=== PATIENT | female | born 1980 | race Caucasian/White ===

== ENCOUNTER 2020-02-11 13:08 | Emergency (ER) | payer OTHER, SELFPAY ==
[2020-02-11 13:17] VITALS: BP 99/68; PULSE 87; RESP 12; TEMP 36.8; O2SAT 100
--- NOTE | 2020-02-11 13:35 | ED.GENADULT ---
HPI - General Adult General Chief complaint: Nausea/Vomiting/Diarrhea Stated complaint: vomiting/weakness/nausea Time Seen by Provider: 02/11/20 13:35 Source: patient and RN notes reviewed Mode of arrival: ambulatory Limitations: no limitations History of Present Illness HPI narrative: 39-year-old female presents with complaints of diarrhea, chills, and weakness for the past 21 days. Diarrhea has been present for the past 3 weeks. Symptoms increased over the past 24 hours with nausea and vomiting without blood. Nausea, vomiting, and diarrhea without abdominal pain. No treatment. No abdominal pain or cramping. Exacerbating factors consist of eating and drinking. LBM this afternoon brown thick stool without blood. Talya says she has had 2 stools today, 02/10/20 3 stools, 02/09/20 3 brown watery stools all without blood. Intermittent chills without unknown fever. Denies headache, dizziness, back pain, dysuria, and blood in stool. Tolerating po intake well, says she has been drinking 2 large water containers. Remains active. The patient reports she have not been diagnosed with COVID-19. The patient reports she is not waiting for the results of a COVID-19 lab test. The patient reports she do not have known fever, fatigue. The patient reports she do not have a new or worsening cough or shortness of breath. Denies chest pain. The patient reports she do not have any rhinorrhea, congestion, sore throat, loss of taste, or abdominal pain. Denies recent traveling. Denies concerns for COVID-19 or exposures been home with limited outdoor exposure except for essential household needs, work, and return home. At this time, patient is not suspected of having COVID-19. Some parts of this dictation were generated by voice recognition software and may contain typographical and/or grammatical inaccuracies. Related Data Allergies Allergy/AdvReac Type Severity Reaction Status Date / Time acetaminophen Allergy Unknown HIVES Verified 01/24/19 09:29 hydrocodone Allergy Unknown HIVES Verified 01/24/19 09:29 amoxicillin AdvReac Intermediate hives Verified 01/24/19 10:00 clavulanic acid AdvReac Intermediate hives Verified 01/24/19 10:00 Review of Systems Review of Systems: Narrative: CONSTITUTIONAL: Denies fever, sweats. Complains of chills. EYES: Denies visual changes, redness, discharge. ENT: Denies rhinorrhea, congestion, sore throat, otalgia. CARDIOVASCULAR: Denies chest pain, palpitations, edema. RESPIRATORY: Denies dyspnea, wheezing, cough. GASTROINTESTINAL: Denies abdominal pain. Complains of diarrhea, nausea, and vomiting. GENITOURINARY: Denies dysuria, hematuria, abnormal discharge. SKIN: Denies rash or itching. MUSCULOSKELETAL: Denies acute back pain, joint pain, or myalgia. NEUROLOGIC: Denies numbness or focal weakness. Complains of generalized weakness. PSYCHIATRIC: Denies anxiety or depression. All systems reviewed & are unremarkable except as noted in HPI and below. [facility] Past Medical History Medical History (Updated 02/11/20 @ 13:48 by BHASKAR Mar) Anxiety Cervical cancer Remission Depression Surgical History Surgical History (Updated 02/11/20 @ 13:45 by BHASKAR Mar) History of dental surgery History of tubal ligation Family History Family History (Updated 02/11/20 @ 13:46 by BHASKAR Mar) Father Diabetes mellitus Heart disease Family history of cancer Mother Family history of cancer Social History Social History (Updated 02/11/20 @ 13:56 by BHASKAR Mar) Smoking packs per day: 0.25 Smoking cigarettes per day: 5.0 Years smoked: 24 Smoking pack-years: 6.00 Smoking status: Current every day smoker Tobacco type: cigarettes Alcohol intake: former Substance use: former Gender identity (if verbalized by the patient): Female Comments At time of signature, I have reviewed and agree with nursing past medical, surgical, social, and family history.
== END 2020-02-11 14:14 | disposition home or self-care (01) ==
PROVIDERS: Emergency Provider Nurse Practitioner Family
DX: K52.9 Noninfective gastroenteritis and colitis, unspecified (principal); Z20.828 Contact with and (suspected) exposure to other viral communicable diseases; F17.210 Nicotine dependence, cigarettes, uncomplicated; Z85.41 Personal history of malignant neoplasm of cervix uteri
CPT/HCPCS: 81003; 87077; 87086; 87088; 87186; 99213; G0463

== ENCOUNTER 2020-02-27 16:58 | Emergency (ER) | payer OTHER, SELFPAY ==
--- NOTE | ~2020-02-27 | XR_ITS ---
EXAMINATION: XR chest 1V portable DATE: 02/27/2020 22:40 INDICATION: Weakness. Nausea and vomiting. Diarrhea. TECHNIQUE: A single frontal view of the chest was obtained. COMPARISON: CT abdomen and pelvis 02/27/2020 FINDINGS: There is no pneumonia, pleural effusion, or pneumothorax. The heart size is normal. IMPRESSION: 1. No acute cardiopulmonary disease. Reviewed, dictated and finalized at location A.
--- NOTE | ~2020-02-27 | CT_ITS ---
EXAMINATION: CT abdomen pelvis w con DATE: 02/27/2020 22:37 INDICATION: Nausea and vomiting. Diarrhea. TECHNIQUE: Computed tomography (CT) of the abdomen and pelvis was performed with 100 mL Omnipaque 350 intravenous contrast. Automated exposure control and iterative reconstruction technique were employe d. The dose-length product was 186.10 mGy-cm. COMPARISON: None. FINDINGS: The visualized portions of the lung bases are clear without pneumonia or pleural effusion. The heart size is normal. No pericardial effusion. The liver, gallbladder, spleen, pancreas, adrenal glands, and kidneys are normal. There are no dilated loops of bowel. The appendix is normal. The left periuterine and ovarian veins are enlarged, consistent with pelvic venous insufficiency. There is tr manuelito pelvic ascites. There are no pathologically enlarged lymph nodes. IMPRESSION: 1. Pelvic venous insufficiency. Reviewed, dictated and finalized at location A.
[2020-02-27 17:57] VITALS: BP 115/75; PULSE 80; RESP 18; TEMP 37.3; O2SAT 94
[2020-02-27 18:19] LABS: Basophils Absolute Auto 0.1 K/mm3 (0.0-0.1); Basophils Percent Auto 0.7 % (0.2-1.2); Eosinophils Absolute Auto 0.1 K/mm3 (0-0.3); Eosinophils Percent Auto 1.5 % (0-4.4); Hematocrit 44.5 % (37.0-47.0); Immature Granulocyte Absolute 0.02 K/mm3 (0.00-0.031); Immature Granulocyte Percent A 0.2 % (0-0.5); Lymphocytes Absolute Auto 2.87 K/mm3 (0.9-3.2); Lymphocytes Percent Auto 34.9 % (18.3-44.2); Mean Corpuscular HGB Conc 33.7 g/dl (32-36); Mean Corpuscular Hemoglobin 29.9 pg (26-34); Mean Corpuscular Volume 88.8 fl (80-100); Mean Platelet Volume 12.1 fl (7.4-10.4); Monocytes Absolute Auto 0.6 K/mm3 (0.1-0.6); Monocytes Percent Auto 6.7 % (2.6-8.5); Neutrophils Absolute Auto 4.6 K/mm3 (1.3-6.7); Platelet Count Result 198 k/mm3 (150-375); Red Blood Count 5.01 M/mm3 (4.2-5.4); Red Cell Distribution Width 12.4 % (11.5-14.5); White Blood Count 8.2 K/mm3 (4.5-10.0)
[2020-02-27 18:32] LABS: Alanine Aminotransferase 14 U/L (4-35); Albumin Level 4.6 g/dL (3.5-5.1); Alkaline Phosphatase 73 U/L (38-126); Anion Gap 6 mmol/L (8-16); Aspartate Amino Transferase 21 U/L (14-36); Bilirubin,Total 0.5 mg/dL (0.2-1.3); Blood Urea Nitrogen 9 mg/dL (7-17); Calcium 9.1 mg/dL (8.4-10.2); Carbon Dioxide 24 mmol/L (22-30); Chloride 109 mmol/L (98-107); Estimated CRCL calculation 61 ml/min; Estimated Glomerular Filt Rate > 60; Glucose 95 mg/dL (65-105); Lipase 141 U/L (23-300); Potassium 3.7 mmol/L (3.4-5.0); Sodium 139 mmol/L (137-145)
[2020-02-27 21:46] LABS: Add Urine Microscopic? NO; Appearance Urine Clear (Clear); Bilirubin Urine Negative (Negative); Blood Urine Negative (Negative); Color Urine Yellow (Yellow); Glucose Urine UA Negative (Negative); Ketones Urine Negative (Negative); Leukocyte Esterase Ur Negative LEU/UL (Negative); Nitrate Urine Negative (Negative); Protein Urine Negative (Negative); Specific Grav Ur 1.019 (1.001-1.035); Urobilinogen Urine Negative mg/dL (<2.0)
[2020-02-27 22:10] VITALS: BP 105/71; BP 105/76; PULSE 54; PULSE 62
[2020-02-27 22:11] VITALS: BP 102/80; PULSE 71
[2020-02-27] MEDS: LACTATED RINGERS 1,000 ML 999 ML IV CONT (22:13)
--- NOTE | 2020-02-27 22:16 | ED.NAVMDI ---
HPI - Nausea/Vomiting/Diarrhea General Chief complaint: Nausea/Vomiting/Diarrhea Stated complaint: n/v/d, recently had gastroenteritis Time Seen by Provider: 02/27/20 21:50 Source: patient Mode of arrival: ambulatory Limitations: no limitations History of Present Illness HPI Narrative: This patient is a 39 year old female who presents for evaluation of nausea, vomiting and diarrhea. She states she has diarrhea daily for 5 weeks. She states she has 3- 4 episodes of watery, nonbloody diarrhea in the morning. She also states she has vomiting in the morning as well. She states she normally does not eat very much in general. She is able to eat during the day with out nausea or vomiting. She denies abdominal pain, cough, fever, headache or dizziness. She was evaluated at an Urgent Care 2 weeks ago. She was diagnosed with gastroenteritis and she was prescribed macrobid. MD elicited complaint: nausea, vomiting and diarrhea Related Data Home Medications Medication Instructions Recorded Confirmed No Home Medications 02/27/20 Allergies Allergy/AdvReac Type Severity Reaction Status Date / Time acetaminophen [From Vicodin] Allergy Hives Verified 02/27/20 18:01 hydrocodone [From Vicodin] Allergy Hives Verified 02/27/20 18:01 Review of Systems Review of Systems: All systems reviewed & are unremarkable except as noted in HPI and below Constitutional: Constitutional: Denies chills and Denies fever(s) Cardiovascular: Cardiovascular: Denies chest pain Respiratory: Respiratory: Denies cough and Denies dyspnea Gastrointestinal: Gastrointestinal: Denies abdominal pain, Reports diarrhea, Reports nausea and Reports vomiting Neurologic: Denies dizziness and Denies numbness Comments: no headache PMFSH Past Medical History Medical History (Updated 02/28/20 @ 00:00 by Miracle Fish) Patient denies medical problems Surgical History Surgical History (Updated 02/27/20 @ 22:24 by Yolanda Villalba MD) No pertinent past surgical history Social History Social History (Updated 02/27/20 @ 22:25 by Yolanda Villalba MD) Substance use type: former substance user Last use: 15 years ago Gender identity (if verbalized by the patient): Female Sexual Orientation (if Verbalized by the Patient): Straight or Heterosexual Exam Const: General: alert Nutritional Appearance: thin Orientation/consciousness: patient oriented x3 HENMT: Head: normocephalic and atraumatic Face and sinus: face symmetric Teeth and gingiva: poor dentition Eyes: EOM: EOMs intact bilaterally Chest: Chest palpation & inspection: normal inspection of the chest Resp: Effort & Inspection: normal respiratory effort and no retractions Auscultation: clear to auscultation bilaterally Cardio: Rate: regular rate Rhythm: regular rhythm Heart sounds: no murmurs GI: GI Palp: Yes Soft to palpation, No Tenderness to palpation present (GI), No Guarding due to palpation present (GI) and No Rigid due to palpation Skin: General skin exam: normal color Rashes: no rashes Neuro: General: patient oriented x3, moves all extremities and CN's II-XI intact bilaterally Psych: Mental Status: mental status grossly normal Affect: normal affect Course Reevaluation(s) Reevaluation #1: I Discussed with patient evaluation has been un remarkable. I Discussed she will need to follow up with collating machine operator. You may have reflux causing nausea and vomiting in morning. Date: 02/27/20 Time: 22:48 Vital Signs Vital signs: Vital Signs Temperature 99.1 F 02/27/20 17:57 Pulse Rate 80 02/27/20 17:57 Respiratory Rate 18 02/27/20 17:57 Blood Pressure 115/75 02/27/20 17:57 Pulse Oximetry 94 02/27/20 17:57 Temperature 97.6 F 02/27/20 23:42 Pulse Rate 58 L 02/27/20 23:42 Respiratory Rate 16 02/27/20 23:42 Blood Pressure 125/78 02/27/20 23:42 Pulse Oximetry 99 02/27/20 23:42 MDM - Nausea/Vomiting/Diarrhea Lab
[2020-02-27 23:42] VITALS: BP 125/78; PULSE 58; RESP 16; TEMP 36.4; O2SAT 99
== END 2020-02-27 23:43 | disposition home or self-care (01) ==
PROVIDERS: Emergency Medicine; Emergency Provider General Practice
DX: R19.7 Diarrhea, unspecified (principal)
CPT/HCPCS: 36415; 71045; 74177; 80053; 81003; 81025; 83690; 85025; 96360; 99284; J7120; Q9967

== ENCOUNTER 2020-04-07 14:47 | Outpatient (CLI) | payer OTHER, SELFPAY ==
--- NOTE | ~2020-04-07 | MM_ITS ---
EXAMINATION: MM screening lokesh BI w daniel HISTORY: Screening mammogram TECHNIQUE: Craniocaudal and mediolateral oblique 3-D tomosynthesis images were obtained and synthetic 2-D images were generated. CAD analysis was submitted and interpreted. COMPARISON: None, baseline BREAST PARENCHYMAL COMPOSITION: The breasts are heterogeneously dense, which may obscure small masses . FINDINGS: There is no evidence of suspicious mass, calcification, or architectural distortion to sugg est malignancy in either breast. IMPRESSION: 1. No mammographic evidence of malignancy. 2. Recommend routine screening mammography in one year. BI-RADS Category 1: Negative Reviewed, dictated and finalized at location A.
--- NOTE | ~2020-04-07 | XR_ITS ---
EXAMINATION: XR knee RT min 4V DATE: 04/07/2020 16:00 INDICATION: Right knee pain. TECHNIQUE: 4 views of right knee were obtained. COMPARISON: None. FINDINGS: Bone alignment is normal. No fracture. Joint spaces are well maintained. There is no knee j oint effusion. IMPRESSION: 1. Normal right knee. Reviewed, dictated and finalized at location A. IMPRESSION: 1. Normal right knee.
== END 2020-04-07 14:48 | disposition home or self-care (01) ==
PROVIDERS: PCP Emergency Medicine; Referring Provider Emergency Medicine; Visit Provider Nurse Practitioner Obstetrics & Gynecology
DX: Z12.31 Encounter for screening mammogram for malignant neoplasm of breast (principal); M25.561 Pain in right knee
CPT/HCPCS: 73564; 77063; 77067

== ENCOUNTER 2020-04-12 01:08 | Outpatient (CLI) | payer OTHER, SELFPAY ==
[2020-04-12 19:58] LABS: SARS-CoV-2 RNA PCR Negative
== END 2020-04-12 01:09 | disposition home or self-care (01) ==
LOC: ANHCOVIDDT 01:08
PROVIDERS: PCP Emergency Medicine; Visit Provider Internal Medicine Gastroenterology
DX: Z01.812 Encounter for preprocedural laboratory examination (principal); Z20.828 Contact with and (suspected) exposure to other viral communicable diseases
CPT/HCPCS: 87635; C9803; U0003

== ENCOUNTER 2020-04-14 03:12 | Day surgery (SDC) | payer OTHER, SELFPAY ==
[2020-04-08 12:32] VITALS: BMI 18.2
[2020-04-14 09:42] VITALS: BP 114/80; PULSE 85; RESP 16; TEMP 37.4; O2SAT 95; BMI 17.3
[2020-04-14] MEDS: LACTATED RINGERS 1,000 ML 150 ML IV CONT (09:53)
--- NOTE | 2020-04-14 10:21 | WPDANESEPPF ---
Anes - Initial Pre Proc Eval Procedure: Operation Date: 04/14/20 11:00 Proposed Procedures p Esophagogastroduodenoscopy & Colonoscopy - Philip Plaza MD Date/Time: 04/14/20 10:21 Surgeon: Philip Plaza MD Pre Op Diagnosis: Nausea, Diarrhea Patient Data Age: 40 Gender: F Height: 5 ft 6 in Weight: 48.7 kg Last Vital Signs Temp 37.4 C 04/14/20 09:42 Pulse 85 04/14/20 09:42 Resp 16 04/14/20 09:42 BP 114/80 04/14/20 09:42 Pulse Ox 95 04/14/20 09:42 Allergies Allergy/AdvReac Type Severity Reaction Status Date / Time hydrocodone Allergy Unknown HIVES Verified 04/14/20 09:40 amoxicillin AdvReac Intermediate hives Verified 04/14/20 09:40 clavulanic acid AdvReac Intermediate hives Verified 04/14/20 09:40 Home Medications Medication Instructions Recorded Confirmed Type peg 3350-electrolytes 236 240 ml PO Q10M #4000 ml 03/19/20 Rx gram-22.74 gram-6.74 gram-5.86 gram solution omega-3 fatty acids-vitamin E 1 cap PO DAILY 04/08/20 04/14/20 History [Fish Oil] Patient hx anesthesia problems: other (difficult to sedate) Family hx anesthesia problems: none PMFSH Past Medical History Medical History Anxiety Cervical cancer Remission Depression Nausea Tobacco dependence Vomiting Surgical History Surgical History History of dental surgery History of tubal ligation Family History Family History Father Diabetes mellitus Heart disease Family history of cancer Mother Family history of cancer Social History Social History Smoking packs per day: 0.5 Smoking cigarettes per day: 10.0 Years smoked: 27 Smoking pack-years: 13.50 Smoking status: Current every day smoker Tobacco type: cigarettes Additional smoking assessment comments: USE TO SMOKE 3 PACKS PER DAY Alcohol intake: current Drinks per week: 0 Alcohol use details: ONCE OR TWICE A YEAR Substance use: current Substance use type: marijuana Other substance usage details: 2 TIMES PER WEEK Last use: 04/05/2020 Gender identity (if verbalized by the patient): Female Spiritual care concerns: No Anes - Eval Final PreProcedure Day of Procedure 04/14/20 10:21 Patient weight: thin Heart: regular rate and rhythm Lungs: decreased breath sounds Airway: Mallampati scale class II Neurological: alert and oriented Last oral intake: >/= 8 hours ASA classification: III Emergent: no Anesthetic plan: proceed Anesthesia type and monitoring: general GIVS and standard monitoring Informed Consent: The patient's anesthetic plan and its attendant risks and benefits were discussed with the patient/family/POA. Questions were solicited and answers provided to the satisfaction of the patient/family/POA.
--- NOTE | 2020-04-14 10:38 | PM.HPGS ---
History of Present Illness History of Present Illness Consent: Risks, benefits, and alternatives have been discussed and questions answered. Patient agrees to proceed with procedure. Chief complaint: Nausea, Diarrhea Narrative: Talya Ramos is a 40 year old female here with intermittent nausea, alternating diarrhea and constipation, never had scopes. Review of Systems Constitutional: Constitutional: Denies headache(s) and Denies weakness Eyes: Eyes: Denies blurry vision ENT: Reports Normal hearing present, Denies headache(s) and Denies neck pain Cardiovascular: Cardiovascular: Denies chest pain and Denies dyspnea Respiratory: Respiratory: Denies dyspnea Gastrointestinal: Gastrointestinal: Reports no additional gastrointestinal complaints Genitourinary: Genitourinary: Denies dysuria Musculoskeletal: Musculoskeletal: Denies neck pain Integumentary/Breasts: Skin/Breast: Denies dry skin Neurologic: Reports Normal hearing present, Denies headache(s) and Denies weakness Psychiatric: Psychiatric: Denies anxiety Endocrine: Endocrine: Denies change in body appearance Hematologic/Lymphatic: Hematologic/Lymphatic: Denies easy bleeding Allergic/Immunologic: Allergic/Immunologic: Denies urticaria PMFSH Past Medical History Medical History Anxiety Cervical cancer Remission Depression Nausea Tobacco dependence Vomiting Surgical History Surgical History History of dental surgery History of tubal ligation Family History Family History Father Diabetes mellitus Heart disease Family history of cancer Mother Family history of cancer Social History Social History Smoking packs per day: 0.5 Smoking cigarettes per day: 10.0 Years smoked: 27 Smoking pack-years: 13.50 Smoking status: Current every day smoker Tobacco type: cigarettes Additional smoking assessment comments: USE TO SMOKE 3 PACKS PER DAY Alcohol intake: current Drinks per week: 0 Alcohol use details: ONCE OR TWICE A YEAR Substance use: current Substance use type: marijuana Other substance usage details: 2 TIMES PER WEEK Last use: 04/05/2020 Gender identity (if verbalized by the patient): Female Spiritual care concerns: No Meds Home Medications and Allergies Home Medications Medication Instructions Recorded Confirmed Type peg 3350-electrolytes 236 240 ml PO Q10M #4000 ml 03/19/20 Rx gram-22.74 gram-6.74 gram-5.86 gram solution omega-3 fatty acids-vitamin E 1 cap PO DAILY 04/08/20 04/14/20 History [Fish Oil] Allergies Allergy/AdvReac Type Severity Reaction Status Date / Time hydrocodone Allergy Unknown HIVES Verified 04/14/20 09:40 amoxicillin AdvReac Intermediate hives Verified 04/14/20 09:40 clavulanic acid AdvReac Intermediate hives Verified 04/14/20 09:40 Vital Signs Vital Signs - 24 hr 04/14/20 09:42 Temperature 99.3 F Pulse Rate 85 Respiratory Rate 16 Blood Pressure 114/80 Pulse Oximetry 95 Exam Const: General: comfortable and no acute distress HENMT: General nose exam: Normal nares present Eyes: General: appearance normal, both eyes and all related structures Neck: Neck: no JVD Resp: Auscultation: clear to auscultation bilaterally Cardio: Rate: regular rate Rhythm: regular rhythm GI: Inspection: non-distended GI Palp: Yes Soft to palpation Skin: General skin exam: normal color Neuro: General: gait normal Speech: normal speech Extrem: General: normal to inspection Psych: Mental Status: mental status grossly normal Assessment and Plan Assessment and plan (1) Nausea: Code(s): R11.0 - Nausea Status: Acute Assessment and Plan: egd with bx (2) Alternating constipation and diarrhea:
[2020-04-14 11:08] VITALS: BP 95/53; PULSE 77; RESP 25; O2SAT 99
[2020-04-14 11:18] VITALS: BP 104/67; PULSE 79; RESP 22; O2SAT 100
[2020-04-14 11:28] VITALS: BP 107/73; PULSE 72; RESP 24; O2SAT 100
== END 2020-04-14 11:50 | disposition home or self-care (01) ==
PROVIDERS: PCP Emergency Medicine; Visit Provider Internal Medicine Gastroenterology
PROC: 0DJ08ZZ Inspection of Upper Intestinal Tract, Via Natural or Artificial Opening Endoscopic (ICD-10-PCS; CPT 43235; principal; 2020-04-14 11:00)
DX: R19.7 Diarrhea, unspecified (principal); K59.00 Constipation, unspecified; K64.8 Other hemorrhoids; K29.70 Gastritis, unspecified, without bleeding; F17.210 Nicotine dependence, cigarettes, uncomplicated; F12.90 Cannabis use, unspecified, uncomplicated
CPT/HCPCS: 45380; 43239; 88305; J2704; J7120

== ENCOUNTER 2020-06-07 16:56 | Emergency (ER) | payer OTHER, SELFPAY ==
[2020-06-07] VITALS (7 sets, daily range): BP systolic 114–123; BP diastolic 78–86; PULSE 63–78; RESP 10–18; TEMP 36.9; O2SAT 97–100
--- NOTE | 2020-06-07 17:24 | ED.CHESTPAIN ---
HPI - Chest Pain General Chief Complaint: Chest Pain Stated Complaint: sent by dr livingston for low hr and chest pain Time Seen by Provider: 06/07/20 17:24 Source: patient Mode of arrival: ambulatory Limitations: no limitations History of Present Illness HPI narrative: 40 years old white female referred to the ED because of intermittent left side sharp stabbing chest pain started 3 to 4 weeks ago. Usually last for few minutes then resolved. Patient reports gets worse with exertion, get better when she relaxing. Patient start working in [employer] December 08, 2019 with a lot of lifting, making boxes and packaging. Patient denies any fever, chills, nausea, vomiting, shortness of breath, exposure to anybody known having COVID-19. Currently patient is asymptomatic. Patient does not take medications at home, she smokes, does not drink or uses drugs. Her father had history of heart attack at age 65.. Related Data Home Medications Medication Instructions Recorded Confirmed omega-3 fatty acids-vitamin E 1 cap PO DAILY 04/08/20 04/14/20 [Fish Oil] Allergies Allergy/AdvReac Type Severity Reaction Status Date / Time hydrocodone Allergy Unknown HIVES Verified 05/19/20 09:29 acetaminophen [From Vicodin] Allergy Hives Verified 05/19/20 09:29 amoxicillin AdvReac Intermediate hives Verified 05/19/20 09:29 clavulanic acid AdvReac Intermediate hives Verified 05/19/20 09:29 Review of Systems Review of Systems: Narrative: CONSTITUTIONAL: Denies fever, chills, or sweats. EYES: Denies visual changes, redness, or discharge. ENT: Denies rhinorrhea, congestion, sore throat, or otalgia. CARDIOVASCULAR: Denies chest pain, palpitations, or edema. RESPIRATORY: Denies cough or dyspnea. GASTROINTESTINAL: Denies abdominal pain, nausea, vomiting, or diarrhea. GENITOURINARY: Denies dysuria or hematuria. SKIN: Denies rash or itching. MUSCULOSKELETAL: Denies back pain, joint pain, or myalgia. NEUROLOGIC: Denies headache, numbness, or weakness. PSYCHIATRIC: Denies anxiety or depression. [facility] Past Medical History Medical History Alternating constipation and diarrhea Anxiety Cervical cancer Remission Depression Nausea Patient denies medical problems Tobacco dependence Vomiting Surgical History Surgical History History of dental surgery History of tubal ligation No pertinent past surgical history Family History Family History Father Diabetes mellitus Heart disease Family history of cancer Mother Family history of cancer Social History Social History Smoking packs per day: 0.5 Smoking cigarettes per day: 10.0 Years smoked: 27 Smoking pack-years: 13.50 Smoking status: Current every day smoker Tobacco type: cigarettes Additional smoking assessment comments: USE TO SMOKE 3 PACKS PER DAY Alcohol intake: current Drinks per week: 0 Substance use: current Substance use type: former substance user and marijuana Other substance usage details: 2 TIMES PER WEEK Last use: 15 years ago Gender identity (if verbalized by the patient): Female Spiritual care concerns: No Exam Narrative: Exam Narrative: General appearance: Well-developed, well-nourished Skin: Normal color Head: Normocephalic, nontraumatic Eyes: Clear conjunctiva ENT: Oropharynx normal, ears normal, nose normal Neck: Supple, nontender Chest and respiratory: Airway patent, no respiratory distress, no accessory muscle use Heart: Regular rate/rhythm Abdomen: Soft, nontender, no organomegaly, quiet bowel sounds Vascular: Normal peripheral pulses, normal capillary refill. Musculoskeletal: Normal range of motion, nontender back Neurologic: Alert and oriented ?3, DIE DESIGNER APPRENTICE is normal as tested, no gross motor deficit
--- NOTE | 2020-06-07 17:30 | PC.NURSE ---
patient here with reported chest pain for the last 3-4 weeks. see initial notes. resting on stretcher. on traffic monitor specialist. has call light in reach.
[2020-06-07 17:36] LABS: Basophils Percent Auto 0.5 % (0.2-1.2); Eosinophils Absolute Auto 0.2 K/mm3 (0-0.3); Hematocrit 43.5 % (37.0-47.0); Hemoglobin 14.5 g/dL (12.0-15.0); Immature Granulocyte Absolute 0.02 K/mm3 (0.00-0.031); Immature Granulocyte Percent A 0.3 % (0-0.5); Lymphocytes Absolute Auto 2.55 K/mm3 (0.9-3.2); Lymphocytes Percent Auto 33.9 % (18.3-44.2); Mean Corpuscular HGB Conc 33.3 g/dl (32-36); Mean Corpuscular Hemoglobin 30.1 pg (26-34); Mean Corpuscular Volume 90.4 fl (80-100); Mean Platelet Volume 11.6 fl (7.4-10.4); Monocytes Absolute Auto 0.5 K/mm3 (0.1-0.6); Monocytes Percent Auto 6.9 % (2.6-8.5); Neutrophils Absolute Auto 4.3 K/mm3 (1.3-6.7); Neutrophils Percent Auto 56.4 % (45.5-73.1); Platelet Count Result 200 k/mm3 (150-375); Red Blood Count 4.81 M/mm3 (4.2-5.4); Red Cell Distribution Width 12.8 % (11.5-14.5); White Blood Count 7.5 K/mm3 (4.5-10.0)
[2020-06-07 17:50] LABS: Alanine Aminotransferase 17 U/L (4-35); Albumin Level 4.4 g/dL (3.5-5.1); Alkaline Phosphatase 86 U/L (38-126); Anion Gap 7 mmol/L (8-16); Aspartate Amino Transferase 30 U/L (14-36); Bilirubin,Total 0.3 mg/dL (0.2-1.3); Blood Urea Nitrogen 9 mg/dL (7-17); Calcium 9.2 mg/dL (8.4-10.2); Carbon Dioxide 26 mmol/L (22-30); Chloride 107 mmol/L (98-107); Estimated Glomerular Filt Rate > 60; Glucose 84 mg/dL (65-105); Potassium 3.7 mmol/L (3.4-5.0); Sodium 140 mmol/L (137-145)
[2020-06-07 18:02] LABS: Troponin I < 0.012 ng/mL (0.000-0.034)
--- NOTE | 2020-06-07 18:32 | ECG_ITS ---
Measurements Intervals Ward Rate: 60 P: 75 AK: 144 QRS: -68 QRSD: 86 T: 68 QT: 404 QTc: 405 Interpretive Statements SINUS RHYTHM WITH SINUS ARRHYTHMIA BASELINE WANDER- I, II NORMAL ECG Electronically Signed On 06-07-2020 19:17:37 TRUCK SPOTTER by Henry Arizmendi D.O.
--- NOTE | 2020-06-07 18:43 | PC.NURSE ---
2nd order for EKG entered. tech to bedside. patient on shelter monitor. patient doing reji during ED visit. no distress noted. waiting for further orders vs disposition from provider.
--- NOTE | 2020-06-07 19:06 | PC.NURSE ---
resting on stretcher. on case monitor.
== END 2020-06-07 19:19 | disposition home or self-care (01) ==
PROVIDERS: Emergency Provider Emergency Medicine; PCP Emergency Medicine
DX: R07.9 Chest pain, unspecified (principal); Z85.41 Personal history of malignant neoplasm of cervix uteri; F17.210 Nicotine dependence, cigarettes, uncomplicated
CPT/HCPCS: 36415; 80053; 84484; 85025; 85380; 93005; 99284

== ENCOUNTER 2020-06-25 00:55 | Outpatient (CLI) | payer OTHER, SELFPAY ==
[2020-06-25 18:46] LABS: SARS-CoV-2 RNA PCR Negative
== END 2020-06-25 00:56 | disposition home or self-care (01) ==
LOC: ANHCOVIDDT 00:55
PROVIDERS: PCP Emergency Medicine; Visit Provider Obstetrics & Gynecology
DX: Z01.812 Encounter for preprocedural laboratory examination (principal); Z20.822 Contact with and (suspected) exposure to COVID-19
CPT/HCPCS: 73564; C9803; U0003; U0005

== ENCOUNTER 2020-06-25 09:06 | Outpatient (CLI) | payer OTHER, SELFPAY ==
--- NOTE | ~2020-06-25 | XR_ITS ---
EXAMINATION: XR knee RT min 4V DATE: 06/25/2020 09:27 INDICATION: Right knee pain. TECHNIQUE: 4 views of right knee were obtained. COMPARISON: Right knee radiographs 04/07/2020 FINDINGS: Bone alignment is normal. No fracture. Joint spaces are well maintained. There is no knee j oint effusion. IMPRESSION: 1. Normal right knee. Reviewed, dictated and finalized at location A. S AGENT TRADING STAMPS IMPRESSION: 1. Normal right knee.
--- NOTE | ~2020-06-25 | XR_ITS ---
EXAMINATION: XR knee LT min 4V DATE: 06/25/2020 09:27 INDICATION: Left knee pain. TECHNIQUE: 4 views of left knee were obtained. COMPARISON: None. FINDINGS: Bone alignment is normal. No fracture. Joint spaces are well maintained. There is no knee j oint effusion. IMPRESSION: 1. Normal left knee. Reviewed, dictated and finalized at location A. ANICAL ENGINEERING TECHNICIAN IMPRESSION: 1. Normal left knee.
== END 2020-06-25 09:07 | disposition home or self-care (01) ==
LOC: ANHIMG 09:13
PROVIDERS: PCP Emergency Medicine; Visit Provider Emergency Medicine
DX: M25.561 Pain in right knee (principal); M25.562 Pain in left knee
CPT/HCPCS: 73564

== ENCOUNTER 2020-06-28 02:22 | Day surgery (SDC) | payer OTHER, SELFPAY ==
[2020-06-24 11:13] VITALS: BMI 19.0
--- NOTE | 2020-06-28 10:51 | WPDHPUPDATE1 ---
History and Physical Update Update Date/Time: 06/28/20 10:51 History and Physical has been reviewed, including an updated exam of the patient. There are NO changes in the patient's condition. Risks, benefits, and alternatives have been discussed and questions answered. Patient agrees to proceed with procedure.
[2020-06-28 10:54] VITALS: BP 129/85; PULSE 70; RESP 20; TEMP 37.3; O2SAT 100
[2020-06-28] MEDS: ACETAMINOPHEN 500 MG TABLET 1000 MG PO (10:58)
[2020-06-28] MEDS: LACTATED RINGERS 1,000 ML 30 ML IV CONT (11:12)
--- NOTE | 2020-06-28 11:22 | PM.IMHP ---
H&P: HPI History of Present Illness Date/Time: 06/28/20 11:22 Chief Complaint: Abnormal uterine bleeding Narrative: Talya Ramos is a 40 year old female with abnormal uterine bleeding and an endometrial lesion. We have agreed to perform hysteroscopy D&C with possible polypectomy. She understands that surgery has risk. She understands that injuries may occur that result in hospitalization, more surgery, and severe illness. She understands risk of hemorrhage and infection. Review of Systems Constitutional: Constitutional: Reports no additional constitutional complaints, Denies fatigue, Denies headache(s), Denies lethargy and Denies weakness Eyes: Eyes: Reports no additional eye complaints, Denies blurry vision and Denies photophobia ENT: Reports as per HPI, Denies headache(s) and Denies neck pain Cardiovascular: Cardiovascular: Denies chest pain, Denies diaphoresis, Denies leg edema, Denies palpitations and Denies dyspnea Respiratory: Respiratory: Denies hemoptysis, Denies dyspnea and Denies wheezing Gastrointestinal: Gastrointestinal: Denies abdominal pain, Denies melena, Denies bloating, Denies hematochezia, Denies nausea and Denies vomiting Genitourinary: Genitourinary: Reports no additional female genitourinary complaints Musculoskeletal: Musculoskeletal: Denies joint swelling, Denies neck pain, Denies numbness and Denies stiffness Neurologic: Denies Abnormal speech present, Denies confusion, Denies headache(s), Denies numbness and Denies weakness Psychiatric: Psychiatric: Denies anxiety, Denies confusion, Denies depression, Denies homicidal ideation and Denies suicidal ideation Endocrine: Endocrine: Denies fatigue and Denies palpitations Allergic/Immunologic: Allergic/Immunologic: Denies wheezing PMFSH Past Medical History Medical History Alternating constipation and diarrhea Anxiety Cervical cancer Remission Depression Nausea Patient denies medical problems Tobacco dependence Vomiting Surgical History Surgical History History of dental surgery History of tubal ligation No pertinent past surgical history Family History Family History Father Diabetes mellitus Heart disease Family history of cancer Mother Family history of cancer Social History Social History Smoking packs per day: 2 Smoking cigarettes per day: 40.0 Years smoked: 17 Smoking pack-years: 34.00 Smoking status: Current every day smoker Tobacco type: cigarettes Additional smoking assessment comments: USE TO SMOKE 3 PACKS PER DAY Alcohol intake: current Drinks per week: 0 Substance use: former Substance use type: methamphetamine Other substance usage details: USED ~2013 FOR 1 YEAR Last use: 15 years ago Living arrangements: with family Additional living arrangements comments: BOYFRIEND AND (PARTTIME) HIS CHILDREN Gender identity (if verbalized by the patient): Female Spiritual care concerns: No Meds Home Medications and Allergies Home Medications Medication Instructions Recorded Confirmed Type ondansetron HCl [Zofran] 4 mg PO Q8H PRN #10 tablet 02/27/20 06/28/20 Rx omega-3 fatty acids-vitamin E 1 cap PO DAILY 04/08/20 06/28/20 History [Fish Oil] famotidine 20 mg tablet 20 mg PO DAILY #30 tablet 04/14/20 06/28/20 Rx aspirin 325 mg PO DAILY #30 tablet 06/07/20 06/28/20 Rx loperamide 2 mg capsule 2 mg PO Q12H PRN #60 cap 06/16/20 06/28/20 Rx alprazolam 0.5 mg PO ONCE 06/24/20 06/28/20 History bisacodyl [Dulcolax (bisacodyl)] 5 mg PO ONCE PRN 06/24/20 06/28/20 History ibuprofen 800 mg PO ONCE 06/24/20 06/28/20 History ondansetron HCl 8 mg PO ONCE 06/24/20 06/28/20 History oxycodone-acetaminophen 1 tablet PO ONCE 06/24/20 06/28/20 History Allergies
--- NOTE | 2020-06-28 11:28 | WPDANESEPPF ---
Anes - Initial Pre Proc Eval Procedure: Operation Date: 06/28/20 13:00 Proposed Procedures p Hysteroscopy With Endometrial Biopsy Possible Polypectomy - Юлия Jenkins MD Date/Time: 06/28/20 11:28 Surgeon: Юлия Jenkins MD Pre Op Diagnosis: Polyp Of Corpus Uteri Patient Data Age: 40 Gender: F Height: 5 ft 6 in Weight: 50.75 kg Last Vital Signs Temp 99.1 F 06/28/20 10:54 Pulse 70 06/28/20 10:54 Resp 20 06/28/20 10:54 BP 129/85 06/28/20 10:54 Pulse Ox 100 06/28/20 10:54 Allergies Allergy/AdvReac Type Severity Reaction Status Date / Time hydrocodone Allergy Unknown HIVES Verified 06/28/20 11:17 clavulanic acid AdvReac Intermediate hives Verified 06/28/20 11:17 Home Medications Medication Instructions Recorded Confirmed Type ondansetron HCl [Zofran] 4 mg PO Q8H PRN #10 tablet 02/27/20 06/28/20 Rx omega-3 fatty acids-vitamin E 1 cap PO DAILY 04/08/20 06/28/20 History [Fish Oil] famotidine 20 mg tablet 20 mg PO DAILY #30 tablet 04/14/20 06/28/20 Rx aspirin 325 mg PO DAILY #30 tablet 06/07/20 06/28/20 Rx loperamide 2 mg capsule 2 mg PO Q12H PRN #60 cap 06/16/20 06/28/20 Rx alprazolam 0.5 mg PO ONCE 06/24/20 06/28/20 History bisacodyl [Dulcolax (bisacodyl)] 5 mg PO ONCE PRN 06/24/20 06/28/20 History ibuprofen 800 mg PO ONCE 06/24/20 06/28/20 History ondansetron HCl 8 mg PO ONCE 06/24/20 06/28/20 History oxycodone-acetaminophen 1 tablet PO ONCE 06/24/20 06/28/20 History Patient hx anesthesia problems: none Family hx anesthesia problems: none PMFSH Past Medical History Medical History Alternating constipation and diarrhea Anxiety Cervical cancer Remission Depression Nausea Patient denies medical problems Tobacco dependence Vomiting Surgical History Surgical History History of dental surgery History of tubal ligation No pertinent past surgical history Family History Family History Father Diabetes mellitus Heart disease Family history of cancer Mother Family history of cancer Social History Social History Smoking packs per day: 2 Smoking cigarettes per day: 40.0 Years smoked: 17 Smoking pack-years: 34.00 Smoking status: Current every day smoker Tobacco type: cigarettes Additional smoking assessment comments: USE TO SMOKE 3 PACKS PER DAY Alcohol intake: current Drinks per week: 0 Substance use: former Substance use type: methamphetamine Other substance usage details: USED ~2013 FOR 1 YEAR Last use: 15 years ago Living arrangements: with family Additional living arrangements comments: BOYFRIEND AND (PARTTIME) HIS CHILDREN Gender identity (if verbalized by the patient): Female Spiritual care concerns: No Anes - Eval Final PreProcedure Day of Procedure 06/28/20 11:28 Patient weight: normal Heart: regular rate and rhythm Lungs: clear to auscultation Airway: Mallampati scale class II Neurological: alert and oriented Last oral intake: >/= 8 hours ASA classification: III Emergent: no Anesthetic plan: proceed Anesthesia type and monitoring: general GIVS and standard monitoring Informed Consent: The patient's anesthetic plan and its attendant risks and benefits were discussed with the patient/family/POA. Questions were solicited and answers provided to the satisfaction of the patient/family/POA.
[2020-06-28] MEDS: LIDOCAINE HCL 1% LOCAL INJ 20 ML VIAL 10 ML INFILTRATE (12:13)
--- NOTE | 2020-06-28 12:20 | SUR.OPER ---
250ml ns in, 150ml ns out. md canela
--- NOTE | 2020-06-28 12:24 | P.OP_ITS ---
Procedure Note - Detailed Date of procedure: 06/28/20 Pre-op diagnosis: Polyp Of Corpus Uteri Abnormal uterine bleeding Post-op diagnosis: same (Normal endometrium) Procedure performed: Hysteroscopy D&C Description of procedure: The patient was taken the operating room. She was prepped and draped in the dorsal lithotomy position after induction of mac anesthesia. A speculum was placed in the vagina. The cervix grasped with a tenaculum. The cervix was injected at 3 and 9:00 a.m. with 1% lidocaine. Cervix was dilated up to 1 cm. The hysteroscope was inserted the intrauterine cavity and the above findings were noted. A medium-size curette was then used to curettage all surfaces within the endometrial cavity. The endometrial curettings were collected on a Telfa. There were submitted to the pathology dep artment. Hysteroscope was reinserted the intrauterine cavity to re-examine the endometrial surfaces. The hysteroscope was withdrawn. The tenaculum was removed. The speculum was removed. The patient tolerated the procedure well. She was taken recovery room stable condition. Sponge lap needle counts were correct x2. Anesthesia: MAC Surgeon: Юлия Jenkins MD Estimated blood loss (mL): 75 Drains: No Packing: No Pathology: yes Complications: No immediate complications Condition: stable Disposition: PACU Findings: There was some mild thickening of the endometrium. There was normal appearing vulva vagina and cervix.
[2020-06-28 12:25] VITALS: BP 136/81; PULSE 61; RESP 12; O2SAT 100
[2020-06-28 12:55] VITALS: BP 151/89; PULSE 55; RESP 12; O2SAT 100
[2020-06-28 13:20] VITALS: BP 155/94; PULSE 53; RESP 12
== END 2020-06-28 13:37 | disposition home or self-care (01) ==
PROVIDERS: PCP Emergency Medicine; Visit Provider Obstetrics & Gynecology
PROC: 0U5B8ZZ Destruction of Endometrium, Via Natural or Artificial Opening Endoscopic (ICD-10-PCS; CPT 58563; principal; 2020-06-28 13:00)
DX: N93.9 Abnormal uterine and vaginal bleeding, unspecified (principal); N84.0 Polyp of corpus uteri; F41.9 Anxiety disorder, unspecified; F32.9 Major depressive disorder, single episode, unspecified; F17.210 Nicotine dependence, cigarettes, uncomplicated
CPT/HCPCS: 58558; 88305; A9270; J2704; J3010; J7120

== ENCOUNTER 2020-07-22 09:52 | Outpatient (CLI) | payer OTHER, SELFPAY ==
[2020-07-22 10:50] LABS: Beta HCG Quantitative < 2.39 mIU/ML
== END 2020-07-22 09:53 | disposition home or self-care (01) ==
LOC: ANHLAB 09:55
PROVIDERS: PCP Emergency Medicine; Visit Provider Obstetrics & Gynecology
DX: Z30.9 Encounter for contraceptive management, unspecified (principal)
CPT/HCPCS: 36415; 84702

== ENCOUNTER 2020-10-01 13:04 | Emergency (ER) | payer OTHER, SELFPAY ==
[2020-10-01 13:15] VITALS: BP 138/89; PULSE 84; RESP 18; TEMP 36.9; O2SAT 100
--- NOTE | 2020-10-01 14:05 | ED.GENADULT ---
HPI - General Adult General Chief complaint: Upper Respiratory Infection Stated complaint: Nausea,Runny Nose Time Seen by Provider: 10/01/20 13:23 Source: patient and RN notes reviewed Mode of arrival: ambulatory Limitations: no limitations History of Present Illness HPI narrative: Patient presents today complaining of nausea, vomiting, diarrhea that started 5 days ago. She last vomited 2 days ago. So far today she has had 2 episodes of diarrhea. Reports 7 episodes of diarrhea yesterday. She has been able to keep down fluids, but has not been trying to eat anything. Denies any blood or mucus in the emesis or stool. Denies abdominal pain. Associated symptoms include congestion, postnasal drip, sore throat, cough, sweats. Denies fever. She has not tried any [id number] treatment prior to arrival. MD complaint: Nausea, vomiting, diarrhea Related Data Home Medications Medication Instructions Recorded Confirmed etonogestrel-ethinyl estradiol 0.015 vag ring VAGINAL MO 10/01/20 10/01/20 famotidine 20 mg PO DAILY 10/01/20 10/01/20 Allergies Allergy/AdvReac Type Severity Reaction Status Date / Time clavulanic acid AdvReac Intermediate hives Verified 10/01/20 13:12 hydrocodone AdvReac Intermediate HIVES Verified 10/01/20 13:11 Review of Systems Review of Systems: Narrative: CONSTITUTIONAL: Denies body aches, fever, chills. + Sweats EYES: Denies visual changes, redness, or discharge. ENT: Denies otalgia.+ Rhinorrhea, congestion, postnasal drip, sore throat CARDIOVASCULAR: Denies chest pain, palpitations, or edema. RESPIRATORY: Denies dyspnea.+ Cough GASTROINTESTINAL: Denies abdominal pain. + Nausea, vomiting, diarrhea GENITOURINARY: Denies dysuria or hematuria. SKIN: Denies rash, itching, or wounds. MUSCULOSKELETAL: Denies back pain, joint pain, or myalgia. NEUROLOGIC: Denies headache, numbness, tingling, or weakness. PSYCH: Denies depression or anxiety. [facility] Past Medical History Medical History Alternating constipation and diarrhea Anxiety Cervical cancer Remission Depression Nausea Patient denies medical problems Tobacco dependence Vomiting Surgical History Surgical History History of dental surgery History of tubal ligation No pertinent past surgical history Family History Family History Father Diabetes mellitus Heart disease Family history of cancer Mother Family history of cancer Social History Social History (Updated 10/01/20 @ 14:50 by Sydni Meek, RADIOLOGIST [employer], ) Smoking packs per day: 0.5 Smoking cigarettes per day: 10.0 Years smoked: 17 Smoking pack-years: 8.50 Smoking status: Current every day smoker Tobacco type: cigarettes Additional smoking assessment comments: USE TO SMOKE 3 PACKS PER DAY Alcohol intake: current Drinks per week: 0 Substance use: former Substance use type: methamphetamine Other substance usage details: USED ~2013 FOR 1 YEAR Last use: 15 years ago Additional living arrangements comments: BOYFRIEND AND (PARTTIME) HIS CHILDREN Gender identity (if verbalized by the patient): Female Spiritual care concerns: No Comments At time of signature, I have reviewed and agree with nursing past medical, surgical, social and family history unless otherwise noted. Please see nursing chart for further information. There is no relevant family history pertinent to the presenting complaint Exam Narrative: Exam Narrative: GENERAL: Well-appearing, well-nourished, and in no acute distress. Thin. HEAD: Normocephalic, atraumatic. EYES: EOMI. No redness or drainage. Conjunctivae normal. ENT: Mucous membranes pink and moist. Nares clear. No rhinorrhea. TMs normal bilaterally. Throat mildly erythematous without edema or exudate. Uvula midline. NECK: Normal AROM. Calderon
== END 2020-10-01 14:13 | disposition home or self-care (01) ==
PROVIDERS: Emergency Provider Nurse Practitioner; PCP Emergency Medicine
DX: B34.9 Viral infection, unspecified (principal); Z20.822 Contact with and (suspected) exposure to COVID-19; F17.219 Nicotine dependence, cigarettes, with unspecified nicotine-induced disorders; Z85.41 Personal history of malignant neoplasm of cervix uteri
CPT/HCPCS: 87081; 87426; 87880; 99213; C9803; G0463

== ENCOUNTER 2020-11-12 10:01 | Emergency (ER) | payer OTHER, SELFPAY ==
[2020-11-12 10:09] VITALS: BP 134/85; PULSE 101; RESP 18; TEMP 37.6; O2SAT 99
--- NOTE | 2020-11-12 10:19 | ED.SKABFB ---
HPI - Skin/Abscess/Foreign Bdy General Chief complaint: Skin/Abscess/Foreign Body Stated complaint: L HAND LACERATION Time Seen by Provider: 11/12/20 10:13 Source: patient and RN notes reviewed Mode of arrival: ambulatory Limitations: no limitations History of Present Illness HPI narrative: Patient presents today with a laceration to her left hand that was sustained at 730 this morning with new knife at home while she was cutting biscuits. She is not up-to-date on her tetanus vaccine. Denies numbness or tingling in the hand or fingers. Currently rates her pain 2/10. She washed with copious cold water at home. She has taken no medication for symptoms prior to arrival. MD complaint: laceration Related Data Home Medications Medication Instructions Recorded Confirmed etonogestrel-ethinyl estradiol 0.015 vag ring VAGINAL MO 10/01/20 10/01/20 famotidine 20 mg PO DAILY 10/01/20 10/01/20 aspirin 325 mg PO DAILY 11/12/20 11/12/20 Allergies Allergy/AdvReac Type Severity Reaction Status Date / Time clavulanic acid AdvReac Intermediate hives Verified 11/12/20 10:15 hydrocodone AdvReac Intermediate HIVES Verified 11/12/20 10:15 Review of Systems Review of Systems: Narrative: CONSTITUTIONAL: Denies body aches, fever, chills, or sweats. EYES: Denies visual changes, redness, or discharge. ENT: Denies rhinorrhea, congestion, sore throat, or otalgia. CARDIOVASCULAR: Denies chest pain, palpitations, or edema. RESPIRATORY: Denies cough or dyspnea. GASTROINTESTINAL: Denies abdominal pain, nausea, vomiting, or diarrhea. GENITOURINARY: Denies dysuria or hematuria. SKIN: Denies rash, itching. + Laceration to left hand MUSCULOSKELETAL: Denies back pain, joint pain, or myalgia. NEUROLOGIC: Denies headache, numbness, tingling, or weakness. PSYCH: Denies depression or anxiety. [facility] Past Medical History Medical History Alternating constipation and diarrhea Anxiety Cervical cancer Remission Depression Nausea Patient denies medical problems Tobacco dependence Vomiting Surgical History Surgical History History of dental surgery History of tubal ligation No pertinent past surgical history Family History Family History Father Diabetes mellitus Heart disease Family history of cancer Mother Family history of cancer Social History Social History Smoking packs per day: 0.5 Smoking cigarettes per day: 10.0 Years smoked: 17 Smoking pack-years: 8.50 Smoking status: Current every day smoker Tobacco type: cigarettes Additional smoking assessment comments: USE TO SMOKE 3 PACKS PER DAY Alcohol intake: current Drinks per week: 0 Substance use: former Substance use type: methamphetamine Other substance usage details: USED ~2013 FOR 1 YEAR Last use: 15 years ago Additional living arrangements comments: BOYFRIEND AND (PARTTIME) HIS CHILDREN Gender identity (if verbalized by the patient): Female Spiritual care concerns: No Comments At time of signature, I have reviewed and agree with nursing past medical, surgical, social and family history unless otherwise noted. Please see nursing chart for further information. There is no relevant family history pertinent to the presenting complaint Exam Narrative: Exam Narrative: GENERAL: Well-appearing, well-nourished, and in no acute distress. HEAD: Normocephalic, atraumatic. EYES: EOMI. No redness or drainage. Conjunctivae normal. ENT: Mucous membranes pink and moist. NECK: Normal AROM. CHEST: No respiratory distress. EXTREMITIES: Normal range of motion. No edema. SKIN: Warm, dry, no rash. Capillary refill normal. Normal skin turgor. 2 cm laceration to the palmar aspect of the medial proximal left hand. Laceration
[2020-11-12] MEDS: TETANUS,DIPHTHERIA,AC PERTUSSIS ADULT (0.5 ML) BOOSTRIX IM (10:28)
== END 2020-11-12 10:40 | disposition home or self-care (01) ==
PROVIDERS: Emergency Provider Nurse Practitioner; PCP Emergency Medicine
DX: S61.412A Laceration without foreign body of left hand, initial encounter (principal); W26.0XXA Contact with knife, initial encounter; Z23 Encounter for immunization; F17.210 Nicotine dependence, cigarettes, uncomplicated; Z85.41 Personal history of malignant neoplasm of cervix uteri; F41.9 Anxiety disorder, unspecified; F32.9 Major depressive disorder, single episode, unspecified
CPT/HCPCS: 12001; 90471; 90715; 99212; G0463

== ENCOUNTER 2021-01-07 15:34 | Emergency (ER) | payer OTHER, SELFPAY ==
[2021-01-07 15:44] VITALS: BP 143/75; PULSE 70; RESP 20; TEMP 36.9; O2SAT 100
[2021-01-07 15:49] VITALS: BP 143/75; PULSE 70; RESP 20; TEMP 36.9; O2SAT 100
--- NOTE | 2021-01-07 15:58 | ED.SKABFB ---
HPI - Skin/Abscess/Foreign Bdy General Chief complaint: Skin/Abscess/Foreign Body Stated complaint: pos spider bite Source: patient and RN notes reviewed Limitations: no limitations History of Present Illness HPI narrative: The patient, previously mostly healthy, presents with skin eruption. Patient states she has a history of prior substance use [smoking, methamphetamine ] , and of acneiform facial rash, and heat pimples on her seat. She now has a couple day history of nickel sized eruption on her left posterior thigh that had some spontaneous discharge in the shower yesterday. No fever, abscess/induration, streaking, known tick/insect bite; symptoms are mild and are improving. Related Data Home Medications Medication Instructions Recorded Confirmed etonogestrel-ethinyl estradiol 0.015 vag ring VAGINAL MO 10/01/20 01/07/21 famotidine 20 mg PO DAILY 10/01/20 01/07/21 aspirin 325 mg PO DAILY 11/12/20 01/07/21 Allergies Allergy/AdvReac Type Severity Reaction Status Date / Time clavulanic acid AdvReac Intermediate hives Verified 01/07/21 15:42 hydrocodone AdvReac Intermediate HIVES Verified 01/07/21 15:42 Review of Systems Review of Systems: The patient has been informed that they may have pre-hypertension or Hypertension based on a BP reading in the department. I recommend that the patient call the primary care provider listed on their discharge instructions or a physician of their choice this week to arrange follow up for further evaluation of possible pre-hypertension or Hypertension General/Constitutional: No weight loss,fever Eyes: N0: Redness,discharge Ears/Nose/Throat: No: Epistaxis,ear discharge Respiratory: Denies: Hemoptysis Gastrointestinal: No Vomiting, Bleeding-rectal Skin: No Lumps, eruption Neurologic: No Focal Weakness,Sz Hematologic: Denies: Petechiae/Purpura Psychiatric: No: Suicida ideationl All Other Systems: Reviewed and Negative [facility] Past Medical History Medical History Alternating constipation and diarrhea Anxiety Cervical cancer Remission Depression Nausea Patient denies medical problems Tobacco dependence Vomiting Surgical History Surgical History History of dental surgery History of tubal ligation No pertinent past surgical history Family History Family History Father Diabetes mellitus Heart disease Family history of cancer Mother Family history of cancer Social History Social History Smoking packs per day: 0.5 Smoking cigarettes per day: 10.0 Years smoked: 17 Smoking pack-years: 8.50 Smoking status: Current every day smoker Tobacco type: cigarettes Additional smoking assessment comments: USE TO SMOKE 3 PACKS PER DAY Alcohol intake: current Drinks per week: 0 Alcohol use details: ONCE OR TWICE A YEAR Substance use: former Substance use type: methamphetamine Other substance usage details: USED ~2013 FOR 1 YEAR Last use: 15 years ago Additional living arrangements comments: BOYFRIEND AND (PARTTIME) HIS CHILDREN Gender identity (if verbalized by the patient): Female Spiritual care concerns: No Comments At time of signature, agree with nursing past medical, surgical, social and family history. There is no relevant family history pertinent to the presenting complaint Exam Narrative: General Appearance: Lean/thin Head: Normocephalic Eye: PERRLA, Conjunctiva clear Ear: External ear normal Nose: Normal nose, Nare clear Mouth/Throat: Normal appearing, acneiform eruption on face including below nose and mouth Neck Exam: Supple Respiratory: Airway patent, No respiratory distress Musculoskeletal: Moves all extremities, Non tender Spine/Back: Normal ROM Skin: Warm, Dry; discr
== END 2021-01-07 16:02 | disposition home or self-care (01) ==
PROVIDERS: Emergency Provider Emergency Medicine; PCP Emergency Medicine
DX: L73.9 Follicular disorder, unspecified (principal); L29.9 Pruritus, unspecified; F17.210 Nicotine dependence, cigarettes, uncomplicated; Z85.41 Personal history of malignant neoplasm of cervix uteri
CPT/HCPCS: 99213; G0463

== ENCOUNTER 2021-03-07 10:03 | Emergency (ER) | payer OTHER, SELFPAY ==
--- NOTE | 2021-03-07 10:05 | ED.SKABFB ---
HPI - Skin/Abscess/Foreign Bdy General Chief complaint: Skin/Abscess/Foreign Body Stated complaint: pos finger infection Time Seen by Provider: 03/07/21 10:05 Source: patient and RN notes reviewed History of Present Illness HPI narrative: Patient is a 40-year-old female who presents the urgent care with complaints of a green spot under the nail . Patient states that 9 days ago she started noticing that her nail was from the finger and then 5 days ago she noticed a green area under the nail. Denies of any pain, fever, nausea, vomiting. Denies of any redness or swelling. Patient has done nothing [id number] for her symptoms. No other acute complaints. No acute distress noted. Patient aware of the plan of care. Some parts of this dictation were generated by voice recognition software and may contain typographical and/or grammatical inaccuracies. Related Data Home Medications Medication Instructions Recorded Confirmed etonogestrel-ethinyl estradiol 0.015 vag ring VAGINAL MO 10/01/20 01/07/21 famotidine 20 mg PO DAILY 10/01/20 01/07/21 aspirin 325 mg PO DAILY 11/12/20 01/07/21 Allergies Allergy/AdvReac Type Severity Reaction Status Date / Time clavulanic acid AdvReac Intermediate hives Verified 01/07/21 15:42 hydrocodone AdvReac Intermediate HIVES Verified 01/07/21 15:42 Review of Systems Review of Systems: CONSTITUTIONAL: Denies fever, chills, or sweats. EYES: Denies visual changes, redness, or discharge. ENT: Denies rhinorrhea, congestion, sore throat, or otalgia. CARDIOVASCULAR: Denies chest pain, palpitations, or edema. RESPIRATORY: Denies cough or dyspnea. GASTROINTESTINAL: Denies abdominal pain, nausea, vomiting, or diarrhea. GENITOURINARY: Denies dysuria or hematuria. SKIN: Reports of a draining spot under the right index fingernail MUSCULOSKELETAL: Denies back pain, joint pain, or myalgia. NEUROLOGIC: Denies headache, numbness, or weakness. All other systems reviewed are negative, except as documented in HPI. [facility] Past Medical History Medical History Alternating constipation and diarrhea Anxiety Cervical cancer Remission Depression Nausea Patient denies medical problems Tobacco dependence Vomiting Surgical History Surgical History History of dental surgery History of tubal ligation No pertinent past surgical history Family History Family History Father Diabetes mellitus Heart disease Family history of cancer Mother Family history of cancer Social History Social History Smoking packs per day: 0.5 Smoking cigarettes per day: 10.0 Years smoked: 17 Smoking pack-years: 8.50 Smoking status: Current every day smoker Tobacco type: cigarettes Additional smoking assessment comments: USE TO SMOKE 3 PACKS PER DAY Alcohol intake: current Drinks per week: 0 Alcohol use details: ONCE OR TWICE A YEAR Substance use: former Substance use type: methamphetamine Other substance usage details: USED ~2013 FOR 1 YEAR Last use: 15 years ago Additional living arrangements comments: BOYFRIEND AND (PARTTIME) HIS CHILDREN Gender identity (if verbalized by the patient): Female Sexual Orientation (if Verbalized by the Patient): Straight or Heterosexual Spiritual care concerns: No Comments At the time of my signature, I reviewed and agree with the nursing past medical, surgical, social, and family history. There is no relevant family history pertinent to the patient complaint. Exam Narrative: GENERAL: This is a well-nourished, well-developed patient, in no apparent distress. HEAD: normocephalic, atraumatic. EYES: PERRL. Sclera clear/white. Vision is grossly intact. EARS: External ears normal NOSE: External nose normal w
[2021-03-07 10:10] VITALS: BP 130/83; PULSE 73; RESP 16; TEMP 36.6; O2SAT 100
== END 2021-03-07 10:21 | disposition home or self-care (01) ==
PROVIDERS: Emergency Provider Nurse Practitioner Family; PCP Emergency Medicine
DX: B35.1 Tinea unguium (principal)
CPT/HCPCS: 99213; G0463

== ENCOUNTER 2021-04-12 09:51 | Outpatient (CLI) | payer OTHER, SELFPAY ==
--- NOTE | ~2021-04-12 | MM_ITS ---
EXAMINATION: MM screening lokesh BI w daniel HISTORY: Screening TECHNIQUE: Craniocaudal and mediolateral oblique 3-D tomosynthesis images were obtained and synthetic 2-D images were generated. CAD analysis was submitted and interpreted. COMPARISON: 04/07/2020 BREAST PARENCHYMAL COMPOSITION: The breasts are heterogenously dense, which may obscure small masses. FINDINGS: There is no evidence of suspicious mass, calcification, or architectural distortion to sugg est malignancy in either breast. There has been no suspicious interval change. IMPRESSION: 1. No mammographic evidence of malignancy. 2. Recommend routine screening mammography in one year. BI-RADS Category 1: Negative Reviewed, dictated and finalized at location A.
== END 2021-04-12 09:52 | disposition home or self-care (01) ==
LOC: ANHIMG 09:54
PROVIDERS: PCP Emergency Medicine; Visit Provider Emergency Medicine
DX: Z12.31 Encounter for screening mammogram for malignant neoplasm of breast (principal)
CPT/HCPCS: 77063; 77067

== ENCOUNTER → 2021-05-30 11:22 | Outpatient (CLI) | payer OTHER, SELFPAY ==
--- NOTE | ~2021-05-30 | XR_ITS ---
XR hand RT min 3V DATE: 05/30/2021 11:34 INDICATION: Punched a tree one week ago. Third metacarpal and finger pain TECHNIQUE: 3 views COMPARISON: None FINDINGS: No fracture or dislocation, periosteal reaction or bone destruction. Joint spaces are prese rved. No erosive change. IMPRESSION: Negative Reviewed, dictated and finalized at location B. MOWER IMPRESSION: Negative
== END ==
PROVIDERS: PCP Emergency Medicine; Visit Provider Emergency Medicine
DX: S69.91XA Unspecified injury of right wrist, hand and finger(s), initial encounter (principal)
CPT/HCPCS: 73130

== ENCOUNTER 2021-08-26 11:31 | Emergency (ER) | payer OTHER, SELFPAY ==
--- NOTE | ~2021-08-26 | XR_ITS ---
EXAMINATION: XR hand RT min 3V DATE: 08/26/2021 11:44 INDICATION: Right hand pain. TECHNIQUE: 3 views of right hand were obtained. COMPARISON: Right hand radiographs 05/30/2021 FINDINGS: Bone alignment is normal. No fracture. Joint spaces are well maintained. IMPRESSION: 1. Normal right hand. Reviewed, dictated and finalized at location A. IMPRESSION: 1. Normal right hand.
--- NOTE | 2021-08-26 11:38 | ED.UPPEXIN ---
HPI - Extremity Injury (Upper) General Chief Complaint: Extremity Injury, Upper Stated Complaint: R HAND PAIN Time Seen by Provider: 08/26/21 11:35 Source: patient, RN notes reviewed and old records reviewed Mode of arrival: ambulatory Limitations: no limitations History of Present Illness HPI narrative: 41 year old female who presents to [facility] care with complaints of pain to the right MCP joint of her right middle finger for several months with increase pain the past week. Patient reports that she knows of no specific injury to her right hand or right middle finger. Patient has not taken any OTC medications for pain, has applied ice to her right hand intermittently with no improvement in her discomfort. No redness, swelling, or noted deformity of right middle finger or right hand. MD complaint: injury to: right and finger (middle finger) Onset (ago): month(s) (increased avalos for 1 week) Other injuries: none Handedness: right Severity: mild Severity scale (1-10): 3 Relieving factors: none Exacerbating factors: movement of extremity Associated symptoms: denies other symptoms Treatments prior to arrival: cold therapy Related Data Allergies Allergy/AdvReac Type Severity Reaction Status Date / Time clavulanic acid AdvReac Intermediate hives Verified 06/02/21 09:57 hydrocodone AdvReac Intermediate HIVES Verified 06/02/21 09:57 Review of Systems Review of Systems: CONSTITUTIONAL: Denies fever, chills, or sweats. EYES: Denies visual changes, redness, or discharge. ENT: Denies rhinorrhea, congestion, sore throat, or otalgia. CARDIOVASCULAR: Denies chest pain, palpitations, or edema. RESPIRATORY: Denies cough or dyspnea. GASTROINTESTINAL: Denies abdominal pain, nausea, vomiting, or diarrhea. GENITOURINARY: Denies dysuria or hematuria. SKIN: Denies rash or itching. MUSCULOSKELETAL: Denies back pain, right middle finger MCP joint pain, or myalgia. NEUROLOGIC: Denies headache, numbness, or weakness. PSYCHIATRIC: Positive for history of anxiety or depression. All systems reviewed & are unremarkable except as noted in HPI and below PMFSH Past Medical History Medical History Alternating constipation and diarrhea Anxiety Cervical cancer Remission Depression GERD (gastroesophageal reflux disease) Nausea Patient denies medical problems Tobacco dependence Vomiting Surgical History Surgical History History of dental surgery History of tubal ligation No pertinent past surgical history Family History Family History Father Diabetes mellitus Heart disease Family history of cancer Mother Family history of cancer Social History Social History Smoking packs per day: 0.5 Smoking cigarettes per day: 10.0 Years smoked: 17 Smoking pack-years: 8.50 Tobacco type: cigarettes Additional smoking assessment comments: USE TO SMOKE 3 PACKS PER DAY Alcohol intake: current Drinks per week: 0 Alcohol use details: ONCE OR TWICE A YEAR Substance use: former Substance use type: methamphetamine Other substance usage details: USED ~2013 FOR 1 YEAR Last use: 15 years ago Additional living arrangements comments: BOYFRIEND AND (PARTTIME) HIS CHILDREN Gender identity (if verbalized by the patient): Female Sexual Orientation (if Verbalized by the Patient): Straight or Heterosexual Spiritual care concerns: No Comments At time of signature, agree with nursing past medical, surgical, social and family history. There is no relevant family history pertinent to the presenting complaint Exam Narrative: GENERAL: Well-appearing, well-nourished, and in no acute distress. HEAD: Normocephalic, atraumatic. EYES: PERRLA and EOMI. ENT: Nares clear, no rhinorrhea or epistaxis. Mucous membranes moist.TM's nor
[2021-08-26 11:45] VITALS: BP 150/110; PULSE 109; RESP 20; TEMP 36.4; O2SAT 98
== END 2021-08-26 12:08 | disposition home or self-care (01) ==
PROVIDERS: Emergency Provider Registered Nurse
DX: M79.644 Pain in right finger(s) (principal); F17.210 Nicotine dependence, cigarettes, uncomplicated; K21.9 Gastro-esophageal reflux disease without esophagitis; Z85.41 Personal history of malignant neoplasm of cervix uteri
CPT/HCPCS: 73130; 99213; G0463

== ENCOUNTER 2021-10-07 12:19 | Emergency (ER) | payer OTHER, SELFPAY ==
--- NOTE | ~2021-10-07 | XR_ITS ---
EXAMINATION: XR toe 1st RT min 2V DATE: 10/07/2021 12:40 INDICATION: Right great toe pain. TECHNIQUE: 3 views of right great toe were obtained. COMPARISON: None. FINDINGS: There is mild hallux valgus. No fracture. There is mild osteoarthritis of first metatarsoph alangeal joint. IMPRESSION: 1. Mild hallux valgus. 2. Mild osteoarthritis of first metatarsophalangeal joint. Reviewed, dictated and finalized at location A.
--- NOTE | 2021-10-07 12:23 | ED.LOWEXIN ---
HPI - Extremity Injury (Lower) General Chief Complaint: Extremity Problem,Nontraumatic Stated Complaint: R TOE PAIN Time Seen by Provider: 10/07/21 12:23 Source: patient Mode of arrival: ambulatory Limitations: no limitations History of Present Illness HPI Narrative: 41 y/o female presented for c/o right great toe pain x5 days. Denies injury. States she completed an 8 mile walk and when she returned home the pain started and has persisted. She has not taken anything for pain, stating nothing helps her pain. Pain is worse when ambulating or bending the toe. Denies redness swelling or bruising. She is currently wearing bilateral yoke splints to hands for sagital band tearing. Endorses taking abx for recurrent ear infections. Related Data Home Medications Medication Instructions Recorded Confirmed amoxicillin 10/07/21 famotidine 10/07/21 metoprolol tartrate 10/07/21 Allergies Allergy/AdvReac Type Severity Reaction Status Date / Time clavulanic acid AdvReac Intermediate hives Verified 06/02/21 09:57 hydrocodone AdvReac Intermediate HIVES Verified 06/02/21 09:57 Review of Systems Review of Systems: CONSTITUTIONAL: Denies body aches, fever, chills EYES: Denies visual changes ENT: Denies rhinorrhea, congestion CARDIOVASCULAR: Denies chest pain, palpitations, or edema. RESPIRATORY: Denies cough or dyspnea. GASTROINTESTINAL: Denies abdominal pain, nausea, vomiting, or diarrhea. SKIN: Denies rash, itching, or wounds. MUSCULOSKELETAL: endorses joint pain NEUROLOGIC: Denies headache, numbness, tingling, or weakness. PSYCH: Denies depression or anxiety. All systems reviewed & are unremarkable except as noted in HPI and below PMFSH Past Medical History Medical History Alternating constipation and diarrhea Anxiety Cervical cancer Remission Depression GERD (gastroesophageal reflux disease) Nausea Patient denies medical problems Tobacco dependence Vomiting Surgical History Surgical History History of dental surgery History of tubal ligation No pertinent past surgical history Family History Family History Father Diabetes mellitus Heart disease Family history of cancer Mother Family history of cancer Social History Social History Smoking packs per day: 0.5 Smoking cigarettes per day: 10.0 Years smoked: 17 Smoking pack-years: 8.50 Tobacco type: cigarettes Additional smoking assessment comments: USE TO SMOKE 3 PACKS PER DAY Alcohol intake: current Drinks per week: 0 Alcohol use details: ONCE OR TWICE A YEAR Substance use: former Substance use type: methamphetamine Other substance usage details: USED ~2013 FOR 1 YEAR Last use: 15 years ago Additional living arrangements comments: BOYFRIEND AND (PARTTIME) HIS CHILDREN Gender identity (if verbalized by the patient): Female Sexual Orientation (if Verbalized by the Patient): Straight or Heterosexual Spiritual care concerns: No Comments At time of signature, I have reviewed and agree with nursing past medical, surgical, social and family history unless otherwise noted. Please see nursing chart for further information. There is no relevant family history pertinent to the presenting complaint Exam Narrative: GENERAL: Well-appearing HEAD: Normocephalic, atraumatic. EYES: conjunctivae clear NECK: Supple. CHEST: Speaks in full sentences. No respiratory distress. HEART: Regular rate and rhythm. Normal and equal peripheral pulses. EXTREMITIES: Right foot and toes with normal strength and sensation, full range of motion, but endorses pain with flexion/extension of great toe. No edema or ecchymosis, no mtp point tenderness. No open wounds, skin tenting or obvious deformity; alignment normal, pulse pa
[2021-10-07 12:25] VITALS: BP 155/92; PULSE 79; RESP 16; TEMP 37.2; O2SAT 100
== END 2021-10-07 13:21 | disposition home or self-care (01) ==
PROVIDERS: Emergency Provider Nurse Practitioner Family; PCP Emergency Medicine
DX: M79.674 Pain in right toe(s) (principal); F17.210 Nicotine dependence, cigarettes, uncomplicated; K21.9 Gastro-esophageal reflux disease without esophagitis; Z85.41 Personal history of malignant neoplasm of cervix uteri
CPT/HCPCS: 73660; 99213; G0463

== ENCOUNTER → 2021-10-22 10:54 | Outpatient (CLI) | payer OTHER, SELFPAY ==
--- NOTE | ~2021-10-22 | XR_ITS ---
XR chest 2V DATE: 10/22/2021 11:18 INDICATION: Chest congestion TECHNIQUE: PA and lateral views COMPARISON: 02/27/2020 portable AP chest FINDINGS: Bilateral hyperinflation. No pulmonary infiltrate or consolidation, pleural effusion or pul monary vascular congestion or pneumothorax. Normal heart size. No hilar or mediastinal enlargement. Mild thoracolumbar dextroscoliosis. IMPRESSION: Bilateral hyperinflation; no active cardiopulmonary disease Reviewed, dictated and finalized at location A.
--- NOTE | ~2021-10-22 | XR_ITS ---
XR tibia fibula LT 2V DATE: 10/22/2021 11:18 INDICATION: Fall. Left lower leg injury, pain TECHNIQUE: AP and lateral views COMPARISON: None FINDINGS: No fracture or dislocation, periosteal reaction or bone destruction. Normal alignment at th e knee and ankle joints. IMPRESSION: Negative Reviewed, dictated and finalized at location A. IMPRESSION: Negative
== END ==
PROVIDERS: PCP Emergency Medicine; Visit Provider Emergency Medicine
DX: S89.92XA Unspecified injury of left lower leg, initial encounter (principal); M41.9 Scoliosis, unspecified; R92.8 Other abnormal and inconclusive findings on diagnostic imaging of breast
CPT/HCPCS: 71046; 73590

== ENCOUNTER → 2021-11-25 10:03 | Outpatient (CLI) | payer OTHER, SELFPAY ==
--- NOTE | ~2021-11-25 | XR_ITS ---
EXAM: XR hand RT min 3V DATE: 11/25/2021 10:24 HISTORY: PAIN 2ND AND 3RD FINGER, NO INJURY . COMPARISON: 08/26/2021. FINDINGS: Normal mineralization. No fracture or dislocation. No lytic or blastic lesion. Joint space s are maintained. No erosion or periosteal change. Soft tissues within normal limits. IMPRESSION: No acute osseous finding in the right hand . Reviewed, dictated and finalized at location K.
== END ==
PROVIDERS: PCP Emergency Medicine; Visit Provider Emergency Medicine
DX: M25.541 Pain in joints of right hand (principal)
CPT/HCPCS: 73130

== ENCOUNTER 2021-12-01 13:29 | Emergency (ER) | payer OTHER, SELFPAY ==
--- NOTE | ~2021-12-01 | XR_ITS ---
EXAMINATION: XR ankle RT min 3V DATE: 12/01/2021 13:51 INDICATION: Right ankle pain and swelling. Fall. TECHNIQUE: 4 views of right ankle were obtained. COMPARISON: None. FINDINGS: Bone alignment is normal. No fracture. Joint spaces are normal. There is ankle soft tissue swelling. IMPRESSION: 1. No fracture. Reviewed, dictated and finalized at location A. IMPRESSION: 1. No fracture.
[2021-12-01 13:36] VITALS: BP 140/79; PULSE 68; RESP 17; TEMP 36.5; O2SAT 100
[2021-12-01 14:07] VITALS: BP 147/96; PULSE 89; RESP 18; O2SAT 99
--- NOTE | 2021-12-01 14:16 | ED.GENADULT ---
HPI - General Adult General Chief complaint: Fall Stated complaint: syncopal episode yesterday Time Seen by Provider: 12/01/21 13:57 History of Present Illness HPI narrative: Patient is a 41-year-old female who presents ER with right ankle pain. She was walking down some steps and she was taking off her glasses and she missed last step falling forwards. She reports she lost consciousness. She also reports she twisted her ankle. Has been having difficulty bearing weight due to the discomfort and has bruising and swelling to the lateral aspect of her right ankle. No numbness or tingling. No headache today or change in vision or hearing. She is without nausea or vomiting. She had mild headache yesterday after the episode. She does not take any blood thinners. No additional concerns at this time. Related Data Home Medications Medication Instructions Recorded Confirmed amoxicillin 500 mg capsule 10/07/21 famotidine 20 mg tablet 10/07/21 metoprolol tartrate 25 mg tablet 10/07/21 Allergies Allergy/AdvReac Type Severity Reaction Status Date / Time clavulanic acid AdvReac Intermediate hives Verified 12/01/21 14:10 hydrocodone AdvReac Intermediate HIVES Verified 12/01/21 14:10 Review of Systems Review of Systems: All systems reviewed & are unremarkable except as noted in HPI and below Constitutional: Constitutional: Denies chills and Denies fever(s) Eyes: Eyes: Denies change in vision and Denies photophobia Gastrointestinal: Gastrointestinal: Denies abdominal pain, Denies nausea and Denies vomiting Musculoskeletal: Musculoskeletal: Reports arthralgias and Reports joint swelling Neurologic: Reports syncope, Reports headache(s) (Now resolved), Denies focal weakness and Denies numbness PMFSH Past Medical History Medical History Alternating constipation and diarrhea Anxiety Cervical cancer Remission Depression GERD (gastroesophageal reflux disease) Nausea Patient denies medical problems Tobacco dependence Vomiting Surgical History Surgical History History of dental surgery History of tubal ligation No pertinent past surgical history Family History Family History Father Diabetes mellitus Heart disease Family history of cancer Mother Family history of cancer Social History Social History Smoking packs per day: 0.5 Smoking cigarettes per day: 10.0 Years smoked: 17 Smoking pack-years: 8.50 Tobacco type: cigarettes Additional smoking assessment comments: USE TO SMOKE 3 PACKS PER DAY Alcohol intake: current Drinks per week: 0 Alcohol use details: ONCE OR TWICE A YEAR Substance use: former Substance use type: methamphetamine Other substance usage details: USED ~2013 FOR 1 YEAR Last use: 15 years ago Additional living arrangements comments: BOYFRIEND AND (PARTTIME) HIS CHILDREN Gender identity (if verbalized by the patient): Female Sexual Orientation (if Verbalized by the Patient): Straight or Heterosexual Spiritual care concerns: No Exam Narrative: GENERAL: Well-appearing, well-nourished, and in no acute distress. HEAD: Normocephalic, atraumatic. EYES: PERRL and EOMI. CHEST: Clear to auscultation. No respiratory distress. HEART: Regular rate and rhythm. Normal peripheral pulses. EXTREMITIES: Swelling and bruising of the right lateral malleolus with tenderness over the ATFL. Normal dorsalis pedis and posterior tibial pulses. Sensation intact. SKIN: Warm, dry, no rash. NEURO: Alert and oriented x3. PSYCH: Normal mood and affect. Course Course Emergency Course: Jose wrap applied. Will provide crutches. Discussed rest ice compression elevation for home. Also discussed anti-inflammatory medications. Vital Signs Vital signs: Vital
[2021-12-01 14:37] VITALS: BP 122/95; PULSE 80; RESP 18; TEMP 36.6; O2SAT 100
== END 2021-12-01 14:37 | disposition home or self-care (01) ==
LOC: ANHED 14:27
PROVIDERS: Emergency Provider Emergency Medicine; PCP Emergency Medicine
DX: S93.401A Sprain of unspecified ligament of right ankle, initial encounter (principal); Z85.41 Personal history of malignant neoplasm of cervix uteri; K21.9 Gastro-esophageal reflux disease without esophagitis; F17.210 Nicotine dependence, cigarettes, uncomplicated; W10.9XXA Fall (on) (from) unspecified stairs and steps, initial encounter
CPT/HCPCS: 73610; 99283

== ENCOUNTER → 2022-03-10 00:18 | Outpatient (CLI) | payer OTHER, SELFPAY ==
[2022-03-10 11:46] LABS: SARS-CoV-2 RNA PCR Negative
== END ==
PROVIDERS: PCP Emergency Medicine; Visit Provider Emergency Medicine
DX: Z20.822 Contact with and (suspected) exposure to COVID-19 (principal)
CPT/HCPCS: C9803; U0003; U0005

== ENCOUNTER 2022-03-16 10:22 | Emergency (ER) | payer OTHER, SELFPAY ==
--- NOTE | ~2022-03-16 | CT_ITS ---
EXAMINATION: CT abdomen pelvis w con DATE: 03/16/2022 16:12 INDICATION: Generalized abdominal pain with vomiting. Lightheadedness. TECHNIQUE: Computed tomography (CT) of the abdomen and pelvis was performed with 100 cc Omnipaque 350 intravenous contrast. The dose-length product was 258.86 mGy-cm. Automated exposure control and iter ative reconstruction technique were employed. COMPARISON: CT dated 02/27/2020. FINDINGS: Lung bases are unremarkable. Heart size normal. No significant pleural or pericardial effus ion. The liver, spleen, pancreas, adrenal glands and kidneys are unremarkable. Gallbladder is present . There is a 3 cm left ovarian cyst. There is a small amount of free fluid in the pelvis. Nonobstruct mayito bowel gas pattern. No free air or free fluid. No acute osseous abnormality. IMPRESSION: 1. Left ovarian cyst measuring 3 cm. Small amount of free fluid in the pelvis. Reviewed, dictated and finalized at location A.
[2022-03-16 10:42] VITALS: BP 143/102; PULSE 93; RESP 17; TEMP 36.9; O2SAT 100
[2022-03-16 11:27] LABS: Basophils Percent Auto 0.3 % (0.2-1.2); Eosinophils Absolute Auto 0.1 K/mm3 (0-0.3); Eosinophils Percent Auto 0.9 % (0-4.4); Hematocrit 44.4 % (37.0-47.0); Hemoglobin 15.1 g/dL (12.0-15.0); Immature Granulocyte Absolute 0.03 K/mm3 (0.00-0.031); Immature Granulocyte Percent A 0.3 % (0-0.5); Lymphocytes Absolute Auto 1.58 K/mm3 (0.9-3.2); Lymphocytes Percent Auto 16.5 % (18.3-44.2); Mean Corpuscular Volume 91.2 fl (80-100); Mean Platelet Volume 11.4 fl (7.4-10.4); Monocytes Absolute Auto 0.4 K/mm3 (0.1-0.6); Monocytes Percent Auto 4.6 % (2.6-8.5); Neutrophils Absolute Auto 7.4 K/mm3 (1.3-6.7); Neutrophils Percent Auto 77.4 % (45.5-73.1); Platelet Count Result 211 k/mm3 (150-375); Red Blood Count 4.87 M/mm3 (4.2-5.4); Red Cell Distribution Width 12.8 % (11.5-14.5); White Blood Count 9.6 K/mm3 (4.5-10.0)
[2022-03-16 11:39] LABS: Alanine Aminotransferase 22 U/L (6-35); Albumin Level 4.6 g/dL (3.5-5.1); Alkaline Phosphatase 90 U/L (38-126); Anion Gap 13 mmol/L (8-16); Aspartate Amino Transferase 28 U/L (14-36); Bilirubin,Total 0.5 mg/dL (0.2-1.3); Blood Urea Nitrogen 6 mg/dL (7-17); Calcium 9.3 mg/dL (8.4-10.2); Carbon Dioxide 21 mmol/L (22-30); Chloride 109 mmol/L (98-107); Estimated CRCL calculation 67 ml/min; Estimated Glomerular Filt Rate > 60; Glucose 102 mg/dL (65-110); Lipase 88 U/L (23-300); Potassium 4.1 mmol/L (3.4-5.0); Sodium 143 mmol/L (137-145)
[2022-03-16 12:45] LABS: Appearance Urine Clear (Clear); Bilirubin Urine Negative (Negative); Blood Urine Negative (Negative); Color Urine Yellow (Yellow); Glucose Urine UA Negative (Negative); Ketones Urine Negative (Negative); Leukocyte Esterase Ur Negative LEU/UL (Negative); Nitrate Urine Negative (Negative); Protein Urine Negative (Negative); Specific Grav Ur 1.015 (1.001-1.035); Urobilinogen Urine 0.2 mg/dL (<2.0); pH Urine 8.5 (5.0-9.0)
[2022-03-16 12:48] LABS: Add Urine Microscopic? NO
[2022-03-16 14:58] VITALS: BP 144/92; PULSE 66; RESP 18; O2SAT 100
--- NOTE | 2022-03-16 15:14 | ED.GENADULT ---
HPI - General Adult General Chief complaint: Nausea/Vomiting/Diarrhea Stated complaint: vomiting Time Seen by Provider: 03/16/22 14:54 Source: RN notes reviewed History of Present Illness HPI narrative: Patient presents emergency room from home for nausea vomiting. Patient states she had nausea vomiting that began this morning with several episodes of emesis she states is associated with some abdominal cramping diffusely throughout the abdomen. She denies any fever chills chest pain shortness of breath diarrhea or any other symptoms. States she does have a history of recurrent issues with nausea vomiting she does see a GI doctor but has not received a formal work-up. She denies having formal work-up Related Data Home Medications Medication Instructions Recorded Confirmed amoxicillin 500 mg capsule 10/07/21 famotidine 20 mg tablet 10/07/21 metoprolol tartrate 25 mg tablet 10/07/21 Allergies Allergy/AdvReac Type Severity Reaction Status Date / Time clavulanic acid AdvReac Intermediate hives Verified 12/01/21 14:10 hydrocodone AdvReac Intermediate HIVES Verified 12/01/21 14:10 Review of Systems Review of Systems: Gen.: Denies fevers or chills ENT: Denies congestion Respiratory: Denies shortness of breath or cough CV: Denies chest pain or palpitations GI: See HPI Musculoskeletal: Denies back pain or muscle pain Neuro: Denies numbness, tingling, weakness or focal weakness Skin: Denies rash Except as documented, all other systems reviewed and negative ON LICENSE OF [facility] Past Medical History Medical History Alternating constipation and diarrhea Anxiety Cervical cancer Remission Depression GERD (gastroesophageal reflux disease) Nausea Patient denies medical problems Tobacco dependence Vomiting Surgical History Surgical History History of dental surgery History of tubal ligation No pertinent past surgical history Family History Family History Father Diabetes mellitus Heart disease Family history of cancer Mother Family history of cancer Social History Social History Smoking packs per day: 0.5 Smoking cigarettes per day: 10.0 Years smoked: 17 Smoking pack-years: 8.50 Tobacco type: cigarettes Additional smoking assessment comments: USE TO SMOKE 3 PACKS PER DAY Alcohol intake: current Drinks per week: 0 Alcohol use details: ONCE OR TWICE A YEAR Substance use: former Substance use type: methamphetamine Other substance usage details: USED ~2013 FOR 1 YEAR Last use: 15 years ago Additional living arrangements comments: BOYFRIEND AND (PARTTIME) HIS CHILDREN Gender identity (if verbalized by the patient): Female Sexual Orientation (if Verbalized by the Patient): Straight or Heterosexual Spiritual care concerns: No Exam Narrative: APPEARANCE: No acute distress, nontoxic, resting in bed HEENT: Normocephalic, atraumatic, OMM RESPIRATORY: No respiratory distress, clear to auscultation bilaterally with no rhonchi wheezing or rales CARDIOVASCULAR: RRR s murmur ABDOMINAL: Soft nondistended tender palpation epigastric and right upper quadrant left lower quadrant no tenderness in right lower quadrant left lower quadrant no rebound or guarding MUSCULOSKELETAl: Moves all extremities. No clubbing, cyanosis or edema. NEURO: Awake and alert. Following commands, speech normal, no focal deficits SKIN:: Warm, dry. Normal Color PSYCHIATRIC: Normal affect/mood Course Course Emergency Course: Discussed with patient states she does see a GI physician states that she is on Pepcid twice a day she states that they are in the process of working her up Patient states nausea is improved with medication Patient states that they are feeling much better at this time. States marisel
[2022-03-16] MEDS: ONDANSETRON INJ 4 MG/2 ML VIAL IV PUSH (15:28)
[2022-03-16] MEDS: FAMOTIDINE 20 MG/2 ML VIAL IV PUSH (15:28)
[2022-03-16] MEDS: SODIUM CHLORIDE 0.9% IV 1,000 ML 999 ML IV CONT (15:29)
[2022-03-16 15:53] LABS: SARS-CoV-2 RNA PCR Negative
[2022-03-16 16:49] VITALS: BP 108/81; PULSE 57; RESP 18; O2SAT 100
== END 2022-03-16 16:57 | disposition home or self-care (01) ==
PROVIDERS: Emergency Medicine; Emergency Provider Emergency Medicine; PCP Emergency Medicine
DX: R11.2 Nausea with vomiting, unspecified (principal); Z20.822 Contact with and (suspected) exposure to COVID-19; K21.9 Gastro-esophageal reflux disease without esophagitis; Z85.41 Personal history of malignant neoplasm of cervix uteri; F17.210 Nicotine dependence, cigarettes, uncomplicated; N83.202 Unspecified ovarian cyst, left side
CPT/HCPCS: 36415; 74177; 80053; 81003; 81025; 83690; 85025; 96361; 96374; 96375; 99284; C9803; J2405; J7030; Q9967; U0003; U0005

== ENCOUNTER 2022-05-07 11:09 | Emergency (ER) | payer OTHER, SELFPAY ==
[2022-05-07 11:34] VITALS: BP 119/77; PULSE 82; RESP 20; TEMP 36.8; O2SAT 95
[2022-05-07 11:42] LABS: Basophils Absolute Auto 0.1 K/mm3 (0.0-0.1); Basophils Percent Auto 0.7 % (0.2-1.2); Eosinophils Absolute Auto 0.3 K/mm3 (0-0.3); Eosinophils Percent Auto 3.1 % (0-4.4); Hematocrit 45.8 % (37.0-47.0); Hemoglobin 15.2 g/dL (12.0-15.0); Immature Granulocyte Absolute 0.03 K/mm3 (0.00-0.031); Immature Granulocyte Percent A 0.4 % (0-0.5); Lymphocytes Absolute Auto 2.35 K/mm3 (0.9-3.2); Lymphocytes Percent Auto 28.7 % (18.3-44.2); Mean Corpuscular HGB Conc 33.2 g/dl (32-36); Mean Corpuscular Hemoglobin 30.5 pg (26-34); Mean Platelet Volume 11.5 fl (7.4-10.4); Monocytes Absolute Auto 0.7 K/mm3 (0.1-0.6); Monocytes Percent Auto 7.9 % (2.6-8.5); Neutrophils Absolute Auto 4.9 K/mm3 (1.3-6.7); Neutrophils Percent Auto 59.2 % (45.5-73.1); Platelet Count Result 223 k/mm3 (150-375); Red Blood Count 4.98 M/mm3 (4.2-5.4); Red Cell Distribution Width 12.5 % (11.5-14.5); White Blood Count 8.2 K/mm3 (4.5-10.0)
[2022-05-07 11:54] LABS: Alanine Aminotransferase 27 U/L (6-35); Albumin Level 4.6 g/dL (3.5-5.1); Alkaline Phosphatase 79 U/L (38-126); Anion Gap 11 mmol/L (8-16); Aspartate Amino Transferase 30 U/L (14-36); Bilirubin,Total 0.5 mg/dL (0.2-1.3); Blood Urea Nitrogen 8 mg/dL (7-17); Calcium 8.7 mg/dL (8.4-10.2); Carbon Dioxide 23 mmol/L (22-30); Chloride 107 mmol/L (98-107); Estimated CRCL calculation 67 ml/min; Estimated Glomerular Filt Rate > 60; Glucose 85 mg/dL (65-110); Lipase 89 U/L (23-300); Potassium 4.4 mmol/L (3.4-5.0); Sodium 141 mmol/L (137-145)
[2022-05-07 11:55] LABS: Bacteria Urine 4+ /hpf; Mucus Urine Rare /lpf; RBC Urine 0-2 /hpf (0-2); Squamous Epithelial Cell Urine Many /hpf (Few)
[2022-05-07 11:56] LABS: Add Urine Microscopic? YES; Appearance Urine Slightly Cloudy (Clear); Bilirubin Urine Negative (Negative); Blood Urine Negative (Negative); Color Urine Light Yellow (Yellow); Glucose Urine UA Negative (Negative); Ketones Urine Negative (Negative); Leukocyte Esterase Ur 1+ LEU/UL (Negative); Nitrate Urine Negative (Negative); Protein Urine Negative (Negative); Urobilinogen Urine 0.2 mg/dL (<2.0); pH Urine 7.5 (5.0-9.0)
--- NOTE | 2022-05-07 12:40 | PC.NURSE ---
PT WENT OUT TO SMOKE A CIGARETTE. AMBULATED WITH STEADY GAIT.
--- NOTE | 2022-05-07 14:54 | ED.NAVMDI ---
HPI - Nausea/Vomiting/Diarrhea General Chief complaint: Nausea/Vomiting/Diarrhea Stated complaint: vomiting Time Seen by Provider: 05/07/22 13:42 Source: patient Mode of arrival: ambulatory Limitations: no limitations History of Present Illness HPI Narrative: THis is a 42 year old female with history of GERD who presents for evaluation vomiting and diarrhea. She states she has been unable to eat anything since Sunday. She reports 1 hour after eating she has vomiting. She denies nausea or abdominal pain with vomiting. She denies feeling as if food is stuck. She reports being able to tolerate liquids without vomiting. She denies being light headed or dizzy. She is followed by GI, Dr. Matias Gannon. She takes famotidine for her GERD. She denies nausea Related Data Home Medications Medication Instructions Recorded Confirmed amoxicillin 500 mg capsule 10/07/21 famotidine 20 mg tablet 10/07/21 metoprolol tartrate 25 mg tablet 10/07/21 Allergies Allergy/AdvReac Type Severity Reaction Status Date / Time clavulanic acid AdvReac Intermediate hives Verified 12/01/21 14:10 hydrocodone AdvReac Intermediate HIVES Verified 12/01/21 14:10 Review of Systems Constitutional: Constitutional: Denies weakness Cardiovascular: Cardiovascular: Denies syncope, Denies rapid heart rate, Denies irregular heart rhythm, Denies leg edema and Denies dyspnea Respiratory: Respiratory: Denies chest congestion, Denies hemoptysis, Denies excessive phlegm production and Denies dyspnea Gastrointestinal: Gastrointestinal: Denies abdominal pain, Denies hematochezia and Denies diarrhea Genitourinary: Genitourinary: Denies hematuria and Denies dysuria Musculoskeletal: Musculoskeletal: Denies joint swelling, Denies loss of height and Denies muscle weakness Neurologic: Denies syncope, Denies focal weakness and Denies weakness PMFSH Past Medical History Medical History Alternating constipation and diarrhea Anxiety Cervical cancer Remission Depression GERD (gastroesophageal reflux disease) Nausea Patient denies medical problems Tobacco dependence Vomiting Surgical History Surgical History History of dental surgery History of tubal ligation No pertinent past surgical history Family History Family History Father Diabetes mellitus Heart disease Family history of cancer Mother Family history of cancer Social History Social History Smoking packs per day: 0.5 Smoking cigarettes per day: 10.0 Years smoked: 17 Smoking pack-years: 8.50 Tobacco type: cigarettes Additional smoking assessment comments: USE TO SMOKE 3 PACKS PER DAY Alcohol intake: current Drinks per week: 0 Alcohol use details: ONCE OR TWICE A YEAR Substance use: former Substance use type: methamphetamine Other substance usage details: USED ~2013 FOR 1 YEAR Last use: 15 years ago Additional living arrangements comments: BOYFRIEND AND (PARTTIME) HIS CHILDREN Gender identity (if verbalized by the patient): Female Sexual Orientation (if Verbalized by the Patient): Straight or Heterosexual Spiritual care concerns: No Exam Narrative: GENERAL: Well-appearing, well-nourished, and in no acute distress. HEAD: Normocephalic, atraumatic EYES: EOMI, conjunctiva clear without discharge NOSE: Nares clear, no rhinorrhea or epistaxis THROAT:Mucous membranes moist, Oropharynx normal without erythema, exudate, peritonsillar swelling or fluctuance NECK: Supple, without lymphadenopathy or mass RESPIRATORY: No respiratory distress, Airway patent, Respirations non-labored, Clear to auscultation without rales, rhonchi or wheeze HEART: Regular rate and rhythm. No murmur heard. Normal peripheral pulses. ABDOMEN: Soft, nontend
[2022-05-07] MEDS: ONDANSETRON HCL ODT 4 MG TABLET PO (15:06)
== END 2022-05-07 17:12 | disposition home or self-care (01) ==
PROVIDERS: Emergency Medicine; Emergency Provider General Practice; PCP Emergency Medicine
DX: R11.2 Nausea with vomiting, unspecified (principal); K21.9 Gastro-esophageal reflux disease without esophagitis; F17.210 Nicotine dependence, cigarettes, uncomplicated; Z85.41 Personal history of malignant neoplasm of cervix uteri
CPT/HCPCS: 36415; 80053; 81001; 81025; 83690; 85025; 99283; A9270

== ENCOUNTER 2022-06-13 07:12 | Outpatient (CLI) | payer OTHER, SELFPAY ==
--- NOTE | ~2022-06-13 | NM_ITS ---
EXAM: NM gastric emptying study DATE: 06/13/2022 13:22 INDICATION: Nausea. TECHNIQUE: A gastric emptying study was performed using the methodology of Joseph DING, et al. J Nucl Med 2007; 48:568-572. The patient was given a meal consisting of 2 scrambled eggs labeled with 1.059 mCi Tc-99m sulfur colloid, 2 slices of toast, two packages of jam, and approximately 120 mL of water . Simultaneous anterior and posterior 1-min images of the abdomen were obtained with the patient supi ne at multiple time points over a total period of 4 hours. The geometric mean of anterior and posteri or views was determined, and the percentage retention was calculated for each time point. COMPARISON: CT abdomen and pelvis 03/16/2022 FINDINGS: Gastric retention of the radiotracer-labeled meal was 56%, 34%, and 4% at the 1-hour, 2-ho ur, and 4-hour time points, respectively. With this technique, apparent rapid gastric emptying is sug gested by <30% gastric retention at 1 hour. Delayed gastric emptying is defined by gastric retention of >90% at 1 hour, >60% retention at 2 hours, or >10% retention at 4 hours. IMPRESSION: 1. Normal gastric emptying. Reviewed, dictated and finalized at location A. NG MILL OPERATOR IMPRESSION: 1. Normal gastric emptying.
== END 2022-06-13 07:13 | disposition home or self-care (01) ==
PROVIDERS: PCP Emergency Medicine; Visit Provider Internal Medicine Gastroenterology
DX: R11.0 Nausea (principal); R11.10 Vomiting, unspecified
CPT/HCPCS: 78264; A9541

== ENCOUNTER 2022-09-15 07:48 | Outpatient (CLI) | payer OTHER, SELFPAY | END 2022-09-15 07:49 | disposition home or self-care (01) | LOC: ANHAUDIO 07:49 | PROVIDERS: PCP Emergency Medicine; Visit Provider Otolaryngology | DX: H93.13 Tinnitus, bilateral (principal) | CPT/HCPCS: 92552; 92556; 92567 ==

== ENCOUNTER 2023-01-06 16:29 | Emergency (ER) | payer OTHER, SELFPAY ==
--- NOTE | ~2023-01-06 | XR_ITS ---
EXAM: XR hand RT min 3V DATE: 01/06/2023 18:04 HISTORY: hand injury YESTERDAY AT WORK PAIN IS NON SPECIFIC . COMPARISON: 11/25/2021. FINDINGS: Normal mineralization. No fracture or dislocation. No lytic or blastic lesion. Joint space s are maintained. No erosion or periosteal change. Soft tissues within normal limits. IMPRESSION: No acute osseous finding in the right hand. Reviewed, dictated and finalized at location K.
[2023-01-06 17:04] VITALS: BP 132/75; PULSE 58; RESP 16; TEMP 36.8; O2SAT 100
[2023-01-06 19:55] VITALS: BP 135/83; PULSE 50; RESP 16; TEMP 36.6; O2SAT 100
--- NOTE | 2023-01-06 20:14 | ED.UPPEXIN ---
HPI - Extremity Injury (Upper) General Chief Complaint: Extremity Injury, Upper Stated Complaint: hand injury Time Seen by Provider: 01/06/23 19:55 Source: patient Mode of arrival: ambulatory Limitations: no limitations History of Present Illness HPI narrative: Patient is a 42-year-old female who presents ED with report of right hand pain. 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 She complains of pain, swelling, bruising to her dorsal hand over her second through fourth knuckles. Denies any numbness or tingling. No wounds. Related Data Home Medications Medication Instructions Recorded Confirmed metoprolol tartrate 25 mg tablet 10/07/21 01/02/23 sumatriptan succinate 100 mg tablet 100 mg PO ONCE 05/25/22 01/02/23 topiramate 25 mg tablet (Topamax) 25 mg PO DAILY 01/02/23 01/02/23 Allergies Allergy/AdvReac Type Severity Reaction Status Date / Time clavulanic acid AdvReac Intermediate hives Verified 01/02/23 12:59 hydrocodone AdvReac Intermediate HIVES Verified 01/02/23 12:59 Review of Systems Review of Systems: CONSTITUTIONAL: Denies fever, chills, or sweats. SKIN: Denies wounds. MUSCULOSKELETAL: See HPI. NEUROLOGIC: Denies tingling, numbness, or weakness. All systems reviewed & are unremarkable except as noted in HPI and below PMFSH Past Medical History Medical History Alternating constipation and diarrhea Anxiety Cervical cancer Remission Colon cancer screening Depression GERD (gastroesophageal reflux disease) Irritable bowel syndrome with mixed bowel habits Nausea Patient denies medical problems Tobacco dependence Vomiting Surgical History Surgical History History of dental surgery History of tubal ligation No pertinent past surgical history Family History Family History Father Diabetes mellitus Heart disease Family history of cancer Mother Family history of cancer Social History Social History Smoking packs per day: 0.5 Smoking cigarettes per day: 10.0 Years smoked: 17 Smoking pack-years: 8.50 Smoking status: Current every day smoker Tobacco type: cigarettes Additional smoking assessment comments: USE TO SMOKE 3 PACKS PER DAY Alcohol intake: current Drinks per week: 0 Alcohol use details: ONCE OR TWICE A YEAR Substance use: former Substance use type: methamphetamine Other substance usage details: USED ~2013 FOR 1 YEAR Last use: 15 years ago Living arrangements: with family Additional living arrangements comments: BOYFRIEND AND (PARTTIME) HIS CHILDREN Occupation/Education: occupation Gender identity (if verbalized by the patient): Female Sexual Orientation (if Verbalized by the Patient): Straight or Heterosexual Spiritual care concerns: No Exam Narrative: GENERAL: Well appearing, well-nourished, non-toxic, in no acute distress. HEAD: Normocephalic, atraumatic. NECK: Supple. No adenopathy, no masses. RESPIRATORY: Airway patent, respirations nonlabored. Clear to auscultation bilaterally, no rales, rhonchi, wheezing. CARDIOVASCULAR: Regular rate and rhythm without murmurs, rubs, or gallops. Radial pulses 2+ and equal bilaterally. MUSCULOSKELETAL: Moves all extremities. No significant limited range of motion of right hand. Tenderness to palpation over second through fourth MCP joints, worst over 3rd MCP, with ecchymosis and minimal swelling noted. SKIN: Warm, dry, normal color. No rashes. NEURO: A&O X3. Speech clear. Cranial nerves II-XII grossly intact. Steady gait. No ataxic movements. PSYCHIATRIC: Appropriate mood and affect. Normal interaction. Course Vital Signs Vital signs: Vital Si
== END 2023-01-06 20:27 | disposition home or self-care (01) ==
PROVIDERS: Emergency Provider Physician Assistant
DX: S60.221A Contusion of right hand, initial encounter (principal); K58.2 Mixed irritable bowel syndrome; K21.9 Gastro-esophageal reflux disease without esophagitis; F17.210 Nicotine dependence, cigarettes, uncomplicated; Z85.41 Personal history of malignant neoplasm of cervix uteri; W23.0XXA Caught, crushed, jammed, or pinched between moving objects, initial encounter
CPT/HCPCS: 73130; 99283

== ENCOUNTER 2023-01-16 16:50 | Emergency (ER) | payer OTHER, MEDICAID, SELFPAY ==
--- NOTE | ~2023-01-16 | CT_ITS ---
EXAMINATION: CT abdomen pelvis wo con DATE: 01/16/2023 20:39 INDICATION: LLQ pain TECHNIQUE: Computed tomography (CT) of the abdomen and pelvis was performed without intravenous contr ast. Automated exposure control and iterative reconstruction technique were employed. The dose-length product was 298.20 mGy-cm. COMPARISON: 03/16/2022. FINDINGS: Lower thorax: Unremarkable Liver: Normal. Biliary/Gallbladder: Gallbladder is normal. No bile duct dilation. Pancreas: No mass or duct dilation. Spleen: Normal. Adrenals:No mass. Kidneys: Mild left perinephric stranding. Mild left hydronephrosis. Mild left ureteral inflammatory c hange. GI tract: No small or large bowel dilation. Normal appendix. Mesentery/Peritoneum: No ascites, mass, or free air. Retroperitoneum: No mass. Pelvis: Mild urinary bladder wall thickening and inflammatory change. Small volume free pelvic fluid, within physiologic range. Normal ovaries and uterus. Soft Tissues: Soft tissues and body wall unremarkable. Bones: No acute osseous finding. IMPRESSION: CT findings suspicious for cystitis with ascending infection and possible pyelonephritis on the left. Reviewed, dictated and finalized at location K. IMPRESSION: CT findings suspicious for cystitis with ascending infection and possible pyelo nephritis on the left.
[2023-01-16 17:04] VITALS: BP 143/80; PULSE 69; RESP 16; TEMP 36.7; O2SAT 100
[2023-01-16 17:51] LABS: Appearance Urine Turbid (Clear); Bacteria Urine 4+ /hpf; Bilirubin Urine 1+ (Negative); Blood Urine 3+ (Negative); Color Urine Orange (Yellow); Glucose Urine UA Negative (Negative); Ketones Urine Negative (Negative); Leukocyte Esterase Ur 2+ LEU/UL (Negative); Need Manual Microscopic Reviewed; Nitrate Urine Positive (Negative); Protein Urine 3+ mg/dL (Negative); RBC Urine >100 /hpf (0-2); Squamous Epithelial Cell Urine Moderate /hpf (Few); WBC Urine 51-100 /hpf; pH Urine 7.5 (5.0-9.0)
[2023-01-16 17:55] LABS: Add Urine Microscopic? YES
--- NOTE | 2023-01-16 20:06 | ED.FEMALEGU ---
HPI - Female Genitourinary General Chief complaint: Urogenital-Female Stated complaint: hematuria Time Seen by Provider: 01/16/23 19:11 History of Present Illness HPI Narrative: 42-year-old female states that for about 4 days ago she started noticing some blood in the toilet, initially she thought that was. And so she inserted a tampon, however after 8 hours of it and when she pulled it out, she noticed that there was no blood on it, but there was still blood in the toilet, she then noted that it must be in her urine. She is also endorsing pain in her left lower quadrant. No history of kidney stones. Related Data Home Medications Medication Instructions Recorded Confirmed metoprolol tartrate 25 mg tablet 10/07/21 01/02/23 sumatriptan succinate 100 mg tablet 100 mg PO ONCE 05/25/22 01/02/23 topiramate 25 mg tablet (Topamax) 25 mg PO DAILY 01/02/23 01/02/23 Allergies Allergy/AdvReac Type Severity Reaction Status Date / Time clavulanic acid AdvReac Intermediate hives Verified 01/02/23 12:59 hydrocodone AdvReac Intermediate HIVES Verified 01/02/23 12:59 Review of Systems Review of Systems: CONST: No fever. HEENT: No sore throat C/V: No chest pain RESP: No cough GI: Reports abdominal pain; no nausea or vomiting : Hematuria M/S: No joint pain. SKIN: No rash. NEURO: [No headache or focal numbness or weakness] PSYCH: [No depression] [facility] Past Medical History Medical History Alternating constipation and diarrhea Anxiety Cervical cancer Remission Colon cancer screening Depression GERD (gastroesophageal reflux disease) Irritable bowel syndrome with mixed bowel habits Nausea Patient denies medical problems Tobacco dependence Vomiting Surgical History Surgical History History of dental surgery History of tubal ligation No pertinent past surgical history Family History Family History Father Diabetes mellitus Heart disease Family history of cancer Mother Family history of cancer Social History Social History Smoking packs per day: 0.5 Smoking cigarettes per day: 10.0 Years smoked: 17 Smoking pack-years: 8.50 Smoking status: Current every day smoker Tobacco type: cigarettes Additional smoking assessment comments: USE TO SMOKE 3 PACKS PER DAY Alcohol intake: current Drinks per week: 0 Alcohol use details: ONCE OR TWICE A YEAR Substance use: former Substance use type: methamphetamine Other substance usage details: USED ~2013 FOR 1 YEAR Last use: 15 years ago Living arrangements: with family Additional living arrangements comments: BOYFRIEND AND (PARTTIME) HIS CHILDREN Occupation/Education: occupation Gender identity (if verbalized by the patient): Female Sexual Orientation (if Verbalized by the Patient): Straight or Heterosexual Spiritual care concerns: No Exam Narrative: EXAMINATION OF ORGAN SYSTEMS/BODY AREAS: Constitutional: Vital signs per nursing GENERAL:[No acute distress, non-toxic appearing.] HEAD: Normal with no signs of head trauma. EYES: EOMI, conjunctiva normal ENT: Hearing grossly intact LUNGS: Nonlabored breathing. HEART: [Regular rate and rhythm] ABD: [Soft], slightly tender ot palpation left lower quadrant and left flank EXT: Normal range of motion SKIN: [No rashes or lesions.] NEURO: [Alert and oriented x 3. No gross focal sensory or strength deficits.] PSYCH: Normal affect Course Vital Signs Vital signs: Vital Signs Temperature 98.0 F 01/16/23 17:04 Pulse Rate 69 01/16/23 17:04 Respiratory Rate 16 01/16/23 17:04 Blood Pressure 143/80 H 01/16/23 17:04 Pulse Oximetry 100 01/16/23 17:04 Oxygen Delivery Room Air 01/16/23 17:04 Temperature 98.0 F 01/16/23 1
[2023-01-16] MEDS: SULFAMETHOXAZOLE/TRIMETHOPRIM 800/160 MG DS TABLET 1 TAB PO (22:05)
[2023-01-16 22:10] VITALS: BP 135/84; PULSE 65; RESP 18; O2SAT 99
== END 2023-01-16 22:10 | disposition home or self-care (01) ==
PROVIDERS: Emergency Medicine; Emergency Provider Emergency Medicine
DX: N12 Tubulo-interstitial nephritis, not specified as acute or chronic (principal); K21.9 Gastro-esophageal reflux disease without esophagitis; K58.2 Mixed irritable bowel syndrome; F17.210 Nicotine dependence, cigarettes, uncomplicated
CPT/HCPCS: 74176; 81001; 81025; 87077; 87086; 87186; 99284; A9270